=== PATIENT | male | born 1960 | race Caucasian/White ===

== ENCOUNTER 2017-12-11 18:13 | Inpatient (IN) | payer SELFPAY ==
[2017-12-11 18:48] LABS: ABSOLUTE EOSINOPHILS # (AUTO) 0.1 10^3/uL (0.0-0.6); ABSOLUTE LYMPHOCYTES (AUTO) 1.3 10^3/uL (0.5-4.7); ABSOLUTE NEUT (AUTO) 11.4 10^3/uL (1.7-8.2); BASOPHILS % (AUTO) 0.3 % (0-2); EOSINOPHILS % (AUTO) 0.5 % (0-6); HEMATOCRIT 46.2 % (37.9-51.0); HEMOGLOBIN 15.1 g/dL (13.5-17.0); LYMPHOCYTES % (AUTO) 9.3 % (13-45); MEAN CORPUSCULAR HEMOGLOBIN 25.7 pg (27.0-33.4); MEAN CORPUSCULAR HGB CONC 32.6 g/dL (32.0-36.0); MEAN CORPUSCULAR VOLUME 79 fl (80-97); MONOCYTES % (AUTO) 7.3 % (3-13); PLATELET COUNT 542 10^3/uL (150-450); RED BLOOD COUNT 5.87 10^6/uL (4.35-5.55); RED CELL DISTRIBUTION WIDTH 18.5 % (11.5-14.0); SEGMENTED NEUTROPHILS % (AUTO) 82.6 % (42-78); TOTAL CELLS COUNTED % (AUTO) 100 %; WHITE BLOOD COUNT 13.8 10^3/uL (4.0-10.5)
[2017-12-11] MEDS ORDERED: HYDROMORPHONE HCL INJ/PF 2 MG/ML AMPULE IV ONE ×2 (18:54→20:38)
[2017-12-11] MEDS ORDERED: ONDANSETRON HCL INJ/PF 4 MG/2 ML SDV IV ONE (18:54)
[2017-12-11] MEDS ORDERED: NORMAL SALINE 1000 ML 1,000 ML IV ONE ×2 (19:12)
--- NOTE | 2017-12-11 19:12 | ER Document Report ---
ED General - General Chief Complaint: Breathing Difficulty Stated Complaint: SHORTNESS OF BREATH Time Seen by Provider: 12/11/17 18:41 TRAVEL OUTSIDE OF THE [place] IN LAST 30 DAYS: No - HPI Patient complains to provider of: Shortness of breath chest wall pain Notes: Patient coming in for evaluation of shortness of breath and chest wall pain patient states he has a history of esophageal cancer is diagnosed in 2016 however has not undergone any chemotherapy or radiation. Patient recently moved to the [facility] from [place]. Patient does not have any primary care physician. Patient states that his chest has been hurting for quite some time however today he became very short of breath and concern came to the hospital for further evaluation. Patient denies any fevers chills nausea vomiting diarrhea denies any cough. Patient upon interested examination is very cachectic looking patient states he has been trying to gain weight because of possible placement of a feeding tube. Patient does state he is a DO NOT RESUSCITATE. - Related Data Allergies/Adverse Reactions: No Known Allergies Allergy (Verified 12/11/17 18:14) Past Medical History - Social History Smoking Status: Unknown if Ever Smoked Drug Abuse: Marijuana Family History: Reviewed & Not Pertinent Patient has suicidal ideation: No Patient has homicidal ideation: No Renal/ Medical History: Denies: Hx Peritoneal Dialysis Review of Systems - Review of Systems Constitutional: No symptoms reported EENT: No symptoms reported Cardiovascular: Chest pain Respiratory: Short of breath Gastrointestinal: No symptoms reported Genitourinary: No symptoms reported Male Genitourinary: No symptoms reported Musculoskeletal: No symptoms reported Skin: No symptoms reported Hematologic/Lymphatic: No symptoms reported Neurological/Psychological: No symptoms reported -: Yes All other systems reviewed and negative Physical Exam - Vital signs Vitals: Temp Pulse Resp BP Pulse Ox 97.5 F 76 18 116/88 H 96 12/11/17 18:14 12/11/17 18:14 12/11/17 18:14 12/11/17 18:14 12/11/17 18:14 Interpretation: Normal - General General appearance: Other - Cachectic - HEENT Head: Normocephalic, Atraumatic Eyes: Normal Pupils: PERRL - Respiratory Respiratory status: No respiratory distress Chest status: Tender - Palpation of the anterior chest wall does reproduce the patient's pain Breath sounds: Normal Chest palpation: Normal - Cardiovascular Rhythm: Regular Heart sounds: Normal auscultation Murmur: No - Abdominal Inspection: Normal Distension: No distension Bowel sounds: Normal Tenderness: Nontender Organomegaly: No organomegaly - Back Back: Normal, Nontender - Extremities General upper extremity: Normal inspection, Nontender, Normal color, Normal ROM , Normal temperature General lower extremity: Normal inspection, Nontender, Normal color, Normal ROM , Normal temperature, Normal weight bearing. No: Ronald's sign - Neurological Neuro grossly intact: Yes Cognition: Normal Orientation: AAOx4 Raven Coma Scale Eye Opening: Spontaneous Raven Coma Scale Verbal: Oriented Raven Coma Scale Motor: Obeys Commands Kila Coma Scale Total: 15 Speech: Normal Motor strength normal: LUE, RUE, LLE, RLE Sensory: Normal - Psychological Associated symptoms: Normal affect, Normal mood - Skin Skin Temperature: Warm Skin Moisture: Dry Skin Color: Normal Course - Re-evaluation Re-evalutation: 12/11/17 18:53 Patient came in for shortness of breath chest pain with history of esophageal cancer that has not received any chemotherapy or radiation for. Patient was diagnosed in August 2015. Patient has expressed that he wishes to be a DNR patient just recently moved back to the area does not have primary care or any care established here. 12/12/17 03:43 Laboratory studies and CTA of the chest not revealing significant pathology patient's pain relieved with Dilaudid. Patient has inquired about possible hospice however at this time do feel the best course of action will be to observe patient overnight for further evaluation to establish him case management and establishing care here in the local area. Patient agrees this plan hospitalist agrees this plan to as well - Vital Signs Vital signs: Temp Pulse Resp BP Pulse Ox 97.5 F 53 L 17 137/95 H 100 12/12/17 02:27 12/12/17 02:27 12/12/17 02:27 12/12/17 02:27 12/12/17 02:27 - Laboratory Result Diagrams: 12/11/17 18:36 12/11/17 18:58 Laboratory results interpreted by me: 12/11/17 12/11/17 12/11/17 18:36 18:58 19:13 WBC 13.8 H RBC 5.87 H MCV 79 L MCH 25.7 L RDW 18.5 H Plt Count 542 H Seg Neutrophils % 82.6 H Lymphocytes % 9.3 L Absolute Neutrophils 11.4 H Sodium 135.3 L Chloride 93 L BUN 55 H Glucose 117 H Calcium 11.3 H ALT 18 L Creatine Kinase < 20 L NT-Pro-B Natriuret Pep 1590 H Discharge - Discharge Clinical Impression: History of esophageal cancer, Chest wall pain, Shortness of breath, DNR (do not resuscitate) Condition: Good Disposition: ADMITTED INPATIENT Admitting Provider: [facility] Unit Admitted: Medical Floor
[2017-12-11 19:38] LABS: ALANINE AMINOTRANSFERASE 18 U/L (21-72); ALBUMIN 4.1 g/dL (3.5-5.0); ALKALINE PHOSPHATASE 75 U/L (38-126); ANION GAP 13 (5-19); ASPARTATE AMINO TRANSFERASE 21 U/L (17-59); BILIRUBIN,DIRECT 0.3 mg/dL (0.0-0.4); BILIRUBIN,TOTAL 0.6 mg/dL (0.2-1.3); BLOOD UREA NITROGEN 55 mg/dL (7-20); CALCIUM 11.3 mg/dL (8.4-10.2); CARBON DIOXIDE 29 mmol/L (22-30); CHLORIDE 93 mmol/L (98-107); GLUCOSE 117 mg/dL (75-110); LIPASE 78.5 U/L (23-300); SODIUM 135.3 mmol/L (137-145); TOTAL PROTEIN 7.4 g/dL (6.3-8.2)
[2017-12-11 19:41] LABS: CREATINE KINASE < 20 U/L (55-170)
[2017-12-11 19:47] LABS: CREATINE KINASE MB 2.13 ng/mL (<4.55)
[2017-12-11 19:49] LABS: TROPONIN I 0.049 ng/mL
--- NOTE | 2017-12-11 19:49 | RADIOLOGY REPORT (SQ) ---
EXAM DESCRIPTION: CHEST SINGLE VIEW COMPLETED DATE/TIME: 12/11/2017 7:10 pm REASON FOR STUDY: SOB COMPARISON: None. EXAM PARAMETERS: NUMBER OF VIEWS: One view. TECHNIQUE: Single frontal radiographic view of the chest acquired. RADIATION DOSE: NA LIMITATIONS: None. FINDINGS: LUNGS AND PLEURA: No opacities, masses or pneumothorax. No pleural effusion. MEDIASTINUM AND HILAR STRUCTURES: No masses. Contour normal. HEART AND VASCULAR STRUCTURES: Heart normal in size. Normal vasculature. BONES: No acute findings. HARDWARE: None in the chest. OTHER: No other significant finding. IMPRESSION: NO ACUTE RADIOGRAPHIC FINDING IN THE CHEST. TECHNICAL DOCUMENTATION: JOB ID: [id number] [employer]- All Rights Reserved Reading location - IP/workstation name: [email or web address]
--- NOTE | 2017-12-11 22:00 | RADIOLOGY REPORT (SQ) ---
EXAM DESCRIPTION: CTA CHEST COMPLETED DATE/TIME: 12/11/2017 9:42 pm REASON FOR STUDY: eval sob hx ca esophageal COMPARISON: None. TECHNIQUE: CT scan of the chest performed using helical scanning technique with dynamic intravenous contrast injection. Images reviewed with lung, soft tissue and bone windows. Reconstructed coronal and sagittal MPR images reviewed. Additional 3 dimensional post-processing performed to develop Maximal Intensity Projection images (DE P). All images stored on PACS. All CT scanners at this facility use dose modulation, iterative reconstruction, and/or weight based d osing when appropriate to reduce radiation dose to as low as reasonably achievable (ALARA). [facility]: Dose Right [facility]: CareDose [facility]: Dose Right [facility]: Teradose 4D [facility]: [employer] CONTRAST TYPE AND DOSE: contrast/concentration: Isovue 370.00 mg/ml; Total Contrast Delivered: 60.0 ml; Total Saline Delivered: 67.0 ml Contrast bolus optimized for the pulmonary arteries. Not diagnostic for the aorta. RENAL FUNCTION: BUN 55 creatinine 1.06 RADIATION DOSE: CT Rad equipment meets quality standard of care and radiation dose reduction techniq ues were employed. CTDIvol: 13.2 - 14.3 mGy. DLP: 546 mGy-cm. . LIMITATIONS: None. FINDINGS: LUNGS AND PLEURA: Mild centrilobular emphysematous changes are present. There is no infil trate, effusion, or mass. AORTA AND GREAT VESSELS: No aneurysm. Contrast bolus not optimized for the aorta. HEART: No pericardial effusion. No significant coronary artery calcifications. PULMONARY ARTERIES: No emboli visualized in the main pulmonary arteries or the segmental branches. HILAR AND MEDIASTINAL STRUCTURES: The esophagus is filled with fluid and is dilated down into the low er mediastinum where there is marked thickening of the esophagus. The esophageal lumen at this point is quite narrow. HARDWARE: None in the chest. UPPER ABDOMEN: No significant findings. Limited exam. THYROID AND OTHER SOFT TISSUES: No masses. No adenopathy. BONES: No acute or significant finding. 3D MIPS: Confirm above findings. OTHER: No other significant finding. IMPRESSION: 1. There is no evidence of pulmonary emboli. 2. Mild centrilobular pulmonary emphysema. 3. Large lower esophageal mass. COMMENT: Quality ID # [id number]: Final reports with documentation of one or more dose reduction techniques (e.g., Automated exposure control, adjustment of the mA and/or kV according to patient size, use of iterative reconstruction technique) TECHNICAL DOCUMENTATION: JOB ID: [id number] [employer]- All Rights Reserved Reading location - IP/workstation name: [email or web address]
--- NOTE | 2017-12-11 23:10 | EKG REPORT ---
SEVERITY:- ABNORMAL ECG - SINUS RHYTHM INFERIOR INFARCT, AGE INDETERMINATE : Confirmed by: Carlitos Pelaez 11-Dec-2017 23:09:56
--- NOTE | 2017-12-11 23:10 | EKG REPORT ---
SEVERITY:- OTHERWISE NORMAL ECG - SINUS RHYTHM LOW VOLTAGE IN FRONTAL LEADS MINIMAL ST ELEVATION, INFERIOR LEADS : Confirmed by: Carlitos Pelaez 11-Dec-2017 23:09:19
[2017-12-11] MEDS ORDERED: FENTANYL 12 MCG/HR PATCH.TD72 TD ONE (23:24)
[2017-12-11] MEDS ORDERED: PROMETHAZINE HCL INJ 25 MG/1 ML VIAL IV PRN (23:24)
[2017-12-11] MEDS ORDERED: PROMETHAZINE HCL INJ 25 MG/1 ML VIAL ONE (23:38)
[2017-12-12] MEDS ORDERED: HYDROMORPHONE HCL INJ/PF 2 MG/ML AMPULE ONE (00:29)
[2017-12-12] MEDS: HYDROMORPHONE HCL INJ/PF 2 MG/ML AMPULE IV PRN ×8 (00:31→21:20)
[2017-12-12] MEDS: NORMAL SALINE 1000 ML 1,000 ML IV PRN ×3 (04:21→10:11)
--- NOTE | 2017-12-12 06:08 | PDOC H&P ---
History of Present Illness Admission Date/PCP: 12/12/17 00:00 Patient complains of: Shortness of breath and chest pain History of Present Illness: CHEN GOEL is a 57 year old male with a past medical history of terminal esophageal cancer with severe esophageal stenosis, severe cachexia, anorexia and tobacco dependence. Patient presents with difficulty with swallowing, belching and chest pain. He requests conservative management only formally declining chemotherapy, radiation, requesting DNR and hospice consult. In the emergency room he has a CTA which was negative for PE but shows a large distal esophageal mass with partial esophageal obstruction. Patient [place] the [place]. Past Medical History Malignancy Medical History: Reports: Other - Esophageal cancer Psychiatric Medical History: Reports: Tobacco Dependency Social History Information Source: Patient Lives with: Spouse/Significant other Smoking Status: Unknown if Ever Smoked Cigarettes Packs Per Day: 0.2 Number of Years Smokin Frequency of Alcohol Use: Rare Drugs: Marijuana Hx Prescription Drug Abuse: No - Advance Directive Resuscitation Status: Do Not Resuscitate Family History Family History: COPD Parental Family History Reviewed: Yes Children Family History Reviewed: Yes Sibling(s) Family History Reviewed.: Yes Medication/Allergy Allergies/Adverse Reactions: No Known Allergies Allergy (Verified 12/11/17 18:14) Review of Systems Constitutional: PRESENT: as per HPI, anorexia, fatigue, weight loss. ABSENT: fever(s) Eyes: ABSENT: visual disturbances Ears: ABSENT: hearing changes Cardiovascular: ABSENT: chest pain, dyspnea on exertion, edema, orthropnea, palpitations Respiratory: PRESENT: as per HPI, cough, dyspnea. ABSENT: hemoptysis, sputum Gastrointestinal: PRESENT: as per HPI, bloating, dysphagia, heartburn, nausea Genitourinary: ABSENT: dysuria, hematuria Musculoskeletal: ABSENT: joint swelling Integumentary: ABSENT: rash, wounds Neurological: ABSENT: abnormal gait, abnormal speech, confusion, dizziness, focal weakness, syncope Psychiatric: ABSENT: anxiety, depression, homidical ideation, suicidal ideation Endocrine: ABSENT: cold intolerance, heat intolerance, polydipsia, polyuria Hematologic/Lymphatic: ABSENT: easy bleeding, easy bruising Physical Exam Vital Signs: Temp Pulse Resp BP Pulse Ox 97.5 F 53 L 17 137/95 H 100 12/12/17 02:27 12/12/17 02:27 12/12/17 02:27 12/12/17 02:27 12/12/17 02:27 Intake & Output 12/10/17 12/11/17 12/12/17 11:59 11:59 11:59 Weight 51.9 kg General appearance: PRESENT: cooperative, disheveled, severe distress, thin, other - Chronically ill-appearing with temporal wasting and cachexia Head exam: PRESENT: atraumatic, normocephalic Eye exam: PRESENT: conjunctiva pink, EOMI, PERRLA. ABSENT: scleral icterus Ear exam: PRESENT: normal external ear exam Mouth exam: PRESENT: moist, tongue midline Neck exam: ABSENT: carotid bruit, JVD, lymphadenopathy, thyromegaly Respiratory exam: PRESENT: accessory muscle use, chest wall tenderness, crackles , prolonged expiratory phas, retraction Cardiovascular exam: PRESENT: RRR. ABSENT: diastolic murmur, rubs, systolic murmur Pulses: PRESENT: normal dorsalis pedis pul Vascular exam: PRESENT: normal capillary refill GI/Abdominal exam: PRESENT: diminished bowel sounds, hypoactive bowel sounds, tenderness. ABSENT: ascites, distended Rectal exam: PRESENT: deferred Extremities exam: PRESENT: full ROM. ABSENT: calf tenderness, clubbing, pedal edema Neurological exam: PRESENT: alert, awake, oriented to person, oriented to place , oriented to time, oriented to situation, CN II-XII grossly intact. ABSENT: motor sensory deficit Psychiatric exam: PRESENT: appropriate affect, normal mood. ABSENT: homicidal ideation, suicidal ideation Skin exam: PRESENT: dry, intact, warm. ABSENT: cyanosis, rash Results Impressions: Chest X-Ray 12/11/17 18:24 IMPRESSION: NO ACUTE RADIOGRAPHIC FINDING IN THE CHEST. Chest/Abdomen CTA 12/11/17 20:24 IMPRESSION: 1. There is no evidence of pulmonary emboli. 2. Mild centrilobular pulmonary emphysema. 3. Large lower esophageal mass. Assessment & Plan - Diagnosis (1) Esophageal cancer Is this a current diagnosis for this admission?: Yes Plan: Patient requesting hospice, fentanyl patch, Dilaudid as needed hospice consulted , (2) Intractable pain Is this a current diagnosis for this admission?: Yes Plan: Fentanyl patch, Dilaudid as needed (3) Dysphasia Is this a current diagnosis for this admission?: Yes Plan: Symptomatic management. IV fluid resuscitation requested - Time Time Spent: 30 to 50 Minutes - Inpatient Certification Medical Necessity: Need Close Monitoring Due to Risk of Patient Decompensation
[2017-12-12 06:58] LABS: ANION GAP 7 (5-19); BLOOD UREA NITROGEN 46 mg/dL (7-20); CALCIUM 10.2 mg/dL (8.4-10.2); CARBON DIOXIDE 27 mmol/L (22-30); CHLORIDE 103 mmol/L (98-107); GLUCOSE 84 mg/dL (75-110); POTASSIUM 4.8 mmol/L (3.6-5.0); SODIUM 136.6 mmol/L (137-145)
[2017-12-12] MEDS: IPRATROPIUM/ALBUTEROL 0.5-2.5 MG/3 ML AMPUL NEB PRN ×2 (08:56→19:25)
[2017-12-12 12:49] LABS: APPEARANCE,URINE CLEAR; BILIRUBIN,URINE NEGATIVE (NEGATIVE); COLOR,URINE YELLOW; GLUCOSE, URINE NEGATIVE (NEGATIVE); KETONES,URINE 20 mg/dL (NEGATIVE); LEUKOCYTE ESTERASE,URINE NEGATIVE (NEGATIVE); NITRITE,URINE NEGATIVE (NEGATIVE); PROTEIN,URINE NEGATIVE (NEGATIVE); URINE SPECIFIC GRAVITY 1.046
[2017-12-12] MEDS ORDERED: GLUCAGON,HUMAN RECOMB 1 MG INJ SUBCUT PRN (13:36)
[2017-12-12] MEDS ORDERED: DEXTROSE 50%-WATER 25 GM/50 ML DISP.SYRIN IV PRN ×2 (13:36)
[2017-12-12] MEDS ORDERED: DEXTROSE 40% GEL 15 GM TUBE PO PRN ×2 (13:36)
--- NOTE | 2017-12-12 13:47 | PDOC PROGRESS REPORT ---
Subjective Progress Note for:: 12/12/17 Subjective:: Patient has dysphagia even for water and does not tolerate ice chips Reason For Visit: TERMINAL CA INTRACTABLE PAIN DYSPHAGIA Physical Exam Vital Signs: Temp Pulse Resp BP Pulse Ox 97.5 F 79 17 111/62 97 12/12/17 10:58 12/12/17 10:58 12/12/17 10:58 12/12/17 10:58 12/12/17 12:00 Intake & Output 12/11/17 12/12/17 12/13/17 00:59 00:59 00:59 Intake Total 3056 Balance 3056 Weight 51.9 kg General appearance: PRESENT: mild distress, thin Head exam: PRESENT: atraumatic, normocephalic Eye exam: PRESENT: conjunctiva pale, EOMI, PERRLA Neck exam: ABSENT: carotid bruit, JVD, lymphadenopathy, thyromegaly Respiratory exam: PRESENT: clear to auscultation dionte. ABSENT: rales, rhonchi, wheezes Cardiovascular exam: PRESENT: RRR. ABSENT: diastolic murmur, rubs, systolic murmur GI/Abdominal exam: PRESENT: normal bowel sounds, soft. ABSENT: distended, guarding, mass, organolmegaly, rebound, tenderness Extremities exam: PRESENT: full ROM. ABSENT: calf tenderness, clubbing, pedal edema Neurological exam: PRESENT: alert, awake, CN II-XII grossly intact Psychiatric exam: PRESENT: appropriate affect, normal mood Skin exam: PRESENT: dry, intact, warm. ABSENT: cyanosis, rash Results Laboratory Results: 12/12/17 06:31 12/12/17 12/12/17 06:31 12:14 Sodium 136.6 L Potassium 4.8 Chloride 103 Carbon Dioxide 27 Anion Gap 7 BUN 46 H Creatinine 0.83 Est GFR ( Amer) > 60 Est GFR (Non-Af Amer) > 60 Glucose 84 Calcium 10.2 Urine Color YELLOW Urine Appearance CLEAR Urine pH 5.0 Ur Specific [place] 1.046 Urine Protein NEGATIVE Urine Glucose (UA) NEGATIVE Urine Ketones 20 H Urine Blood NEGATIVE Urine Nitrite NEGATIVE Ur Leukocyte Esterase NEGATIVE Urine WBC (Auto) 0 Urine RBC (Auto) 1 Impressions: Chest X-Ray 12/11/17 18:24 IMPRESSION: NO ACUTE RADIOGRAPHIC FINDING IN THE CHEST. Chest/Abdomen CTA 12/11/17 20:24 IMPRESSION: 1. There is no evidence of pulmonary emboli. 2. Mild centrilobular pulmonary emphysema. 3. Large lower esophageal mass. Assessment & Plan - Time Time Spent with patient: 1 esophageal cancer There is a large mass distal esophagus described on CTA of the chest no pulmonary metastases we had a long discussion with the patient who agrees to initiate a workup and be evaluated for palliative therapy CT abdomen and pelvis with IV contrast will be ordered we discussed the case with Dr. Taylor and Dr. Goldstein who will consult Patient will be n.p.o. after midnight Endoscopy to be performed tomorrow morning 2 dysphasia Keep patient n.p.o. for the time being he is at risk for aspiration Ice chips as needed for comfort patient usually spits to water N.p.o. after midnight It is too early to discuss the gastrostomy tube as modalities of treatment have to be discussed first 3 intractable pain Treat symptomatically; opiates have been initiated 4 we will offer nicotine patch Time Spent with patient: 25-34 minutes
--- NOTE | 2017-12-12 13:57 | PDOC CONSULTATION ---
Consultation Consult Date: 12/12/17 Attending physician:: MARI BENEDICT Consult reason:: esophageal obstruction due to esophageal mass History of Present Illness Admission Date/PCP: 12/12/17 00:00 History of Present Illness: CHEN GOEL is a 57 year old male patient with known lower esophageal mass and has terminal cancer patient is unable to tolerated liquids at this point patient is requesting hospice but consult obtained to see if we could possibly do dilation or possibly be a candidate for esophageal stenting patient on chronic pain control I have spoken to Dr Hurtado patient had CT scan of the chest that confirmed the finding however do not know cell type, ? adenoma ? as a result of Schwartz Past Medical History Malignancy Medical History: Reports: Other - Esophageal cancer Psychiatric Medical History: Reports: Tobacco Dependency Social History Lives with: Spouse/Significant other Smoking Status: Unknown if Ever Smoked Cigarettes Packs Per Day: 0.2 Number of Years Smokin Frequency of Alcohol Use: Rare Drugs: Marijuana Hx Prescription Drug Abuse: No - Advance Directive Resuscitation Status: Do Not Resuscitate Family History Family History: COPD Parental Family History Reviewed: Yes Children Family History Reviewed: Unknown Sibling(s) Family History Reviewed.: Unknown Medication/Allergy Home Medications: No Home Medications 12/12/17 Allergies/Adverse Reactions: No Known Allergies Allergy (Verified 12/11/17 18:14) Review of Systems Constitutional: ABSENT: fever(s), headache(s), night sweats, weakness Eyes: ABSENT: visual disturbances Ears: ABSENT: hearing changes Nose, Mouth, and Throat: ABSENT: mouth pain Cardiovascular: ABSENT: edema, orthropnea Respiratory: ABSENT: dyspnea, hemoptysis Gastrointestinal: PRESENT: dysphagia. ABSENT: melena Genitourinary: ABSENT: dysuria, hematuria Musculoskeletal: ABSENT: deformity, joint swelling Integumentary: ABSENT: lesions, pruritus Neurological: PRESENT: weakness. ABSENT: syncope, tingling, tremor(s), vertigo Endocrine: ABSENT: polydipsia, polyphagia, polyuria Hematologic/Lymphatic: PRESENT: easy bruising. ABSENT: lymphadenopathy Physical Exam Vital Signs: Temp Pulse Resp BP Pulse Ox 97.5 F 79 17 111/62 97 12/12/17 10:58 12/12/17 10:58 12/12/17 10:58 12/12/17 10:58 12/12/17 12:00 Intake & Output 12/11/17 12/12/17 12/13/17 06:59 06:59 06:59 Intake Total 1056 1999 Balance 1056 1999 Weight 51.9 kg General appearance: PRESENT: cooperative, thin Head exam: PRESENT: atraumatic, normocephalic Eye exam: PRESENT: EOMI, PERRLA. ABSENT: nystagmus, periorbital swelling, scleral icterus Mouth exam: PRESENT: moist, neck supple Throat exam: ABSENT: tonsillar exudate, tonsillogmegaly Neck exam: ABSENT: meningismus, tenderness, thyromegaly Respiratory exam: PRESENT: symmetrical, unlabored. ABSENT: tachypnea, wheezes Cardiovascular exam: PRESENT: RRR, +S1, +S2 GI/Abdominal exam: PRESENT: soft. ABSENT: rebound, rigid, tenderness Extremities exam: ABSENT: joint swelling Musculoskeletal exam: PRESENT: full ROM Neurological exam: PRESENT: oriented to time, oriented to situation, reflexes normal, CN II-XII grossly intact Focused psych exam: ABSENT: restlessness Skin exam: PRESENT: normal color. ABSENT: mottled, pallor, urticaria, vesicles Results Laboratory Results: 12/12/17 06:31 12/12/17 12/12/17 06:31 12:14 Sodium 136.6 L Potassium 4.8 Chloride 103 Carbon Dioxide 27 Anion Gap 7 BUN 46 H Creatinine 0.83 Est GFR ( Amer) > 60 Est GFR (Non-Af Amer) > 60 Glucose 84 Calcium 10.2 Urine Color YELLOW Urine Appearance CLEAR Urine pH 5.0 Ur Specific [place] 1.046 Urine Protein NEGATIVE Urine Glucose (UA) NEGATIVE Urine Ketones 20 H Urine Blood NEGATIVE Urine Nitrite NEGATIVE Ur Leukocyte Esterase NEGATIVE Urine WBC (Auto) 0 Urine RBC (Auto) 1 Impressions: Chest X-Ray 12/11/17 18:24 IMPRESSION: NO ACUTE RADIOGRAPHIC FINDING IN THE CHEST. Chest/Abdomen CTA 12/11/17 20:24 IMPRESSION: 1. There is no evidence of pulmonary emboli. 2. Mild centrilobular pulmonary emphysema. 3. Large lower esophageal mass. Assessment & Plan - Diagnosis (1) Esophageal cancer Is this a current diagnosis for this admission?: Yes Plan: Known history of esophageal cancer, but cannot able to tolerate oral intake request is for EGD but except for stent placement , there may be limited ability to help him dilation is temporary at best will speak to Dr Hurtado Risks, benefits and alternatives are discussed with the patient further recommendations to follow the only other issue here is whether is obstructive. - Time Time Spent: 50 to 70 Minutes
--- NOTE | 2017-12-12 14:41 | RADIOLOGY REPORT (SQ) ---
EXAM DESCRIPTION: CT ABD/PELVIS WITH IV ONLY COMPLETED DATE/TIME: 12/12/2017 2:14 pm REASON FOR STUDY: ca esophagus dysphagia COMPARISON: CT angio chest 12/11/2017 TECHNIQUE: CT scan of the abdomen and pelvis performed using helical scanning technique with dynamic intravenous contrast injection. No oral contrast. Images reviewed with lung, soft tissue, and bone windows. Reconstructed coronal and sagittal MPR images reviewed. Delayed images for evaluation of the urinary system also acquired. All images stored on PACS. All CT scanners at this facility use dose modulation, iterative reconstruction, and/or weight based d osing when appropriate to reduce radiation dose to as low as reasonably achievable (ALARA). [facility]: Dose Right [facility]: CareDose [facility]: Dose Right [facility]: Teradose 4D [facility]: DwellAware CONTRAST TYPE AND DOSE: contrast/concentration: Isovue 370.00 mg/ml; Total Contrast Delivered: 56.0 ml; Total Saline Delivered: 65.0 ml RENAL FUNCTION: Creatinine 0.83 RADIATION DOSE: CT Rad equipment meets quality standard of care and radiation dose reduction techniq ues were employed. CTDIvol: 5.7 - 6.6 mGy. DLP: 661 mGy-cm.. LIMITATIONS: None. FINDINGS: LOWER CHEST: There is a distal esophageal tumor involving the distal tendon 15 cm of esoph linda. Tumor extends into the gastric cardia, best shown on coronal reconstruction images 31-37. The re are enlarged posterior mediastinal lymph nodes adjacent to the distal esophageal tumor, with a 2.8 x 2.5 cm lymph node on axial images 3-6. LIVER: Normal size. Multiple liver masses are present worrisome for metastatic disease, largest in t he right lobe liver 2.7 cm diameter, largest left lobe liver 2.9 cm in diameter. SPLEEN: Normal size. No focal lesions. PANCREAS: No masses. No significant calcifications. No adjacent inflammation or peripancreatic fluid collections. Pancreatic duct not dilated. GALLBLADDER: No identified stones by CT criteria. No inflammatory changes to suggest cholecystitis. ADRENAL GLANDS: No significant masses or asymmetry. RIGHT KIDNEY AND URETER: No solid masses. No significant calcifications. No hydronephrosis or hyd roureter. LEFT KIDNEY AND URETER: No solid masses. No significant calcifications. No hydronephrosis or hydr oureter. AORTA AND VESSELS: Infrarenal abdominal aorta 3.3 cm in diameter. No dissection. Renal arteries, SMA, celiac without stenosis. RETROPERITONEUM: No retroperitoneal adenopathy, hemorrhage or masses. BOWEL AND PERITONEAL CAVITY: No masses or inflammatory changes. No free fluid or peritoneal masses. APPENDIX: Normal. PELVIS: No mass. No free fluid. Normal bladder. ABDOMINAL WALL: No masses. No hernias. BONES: No significant or acute findings. OTHER: No other significant finding. IMPRESSION: Distal esophageal neoplasm extending into the gastric cardia. Liver metastatic lesions. TECHNICAL DOCUMENTATION: JOB ID: [id number] Quality ID # [id number]: Final reports with documentation of one or more dose reduction techniques (e.g., Au tomated exposure control, adjustment of the mA and/or kV according to patient size, use of iterative reconstruction technique) 2010 [employer]- All Rights Reserved Reading location - IP/workstation name: [email or web address]
[2017-12-12] MEDS: PROMETHAZINE HCL INJ 25 MG/1 ML VIAL IV PRN (18:32)
[2017-12-13] MEDS: HYDROMORPHONE HCL INJ/PF 2 MG/ML AMPULE IV PRN ×7 (00:40→21:31)
[2017-12-13] MEDS: PROMETHAZINE HCL INJ 25 MG/1 ML VIAL IV PRN ×4 (00:41→22:48)
[2017-12-13] MEDS ORDERED: ONDANSETRON HCL INJ/PF 4 MG/2 ML SDV ONE (09:47)
[2017-12-13] MEDS ORDERED: PROPOFOL INJ 200 MG/20 ML VIAL IV ONE (09:47)
[2017-12-13] MEDS ORDERED: MIDAZOLAM 2 MG/2 ML INJ ONE (09:47)
--- NOTE | 2017-12-13 10:26 | PDOC CONSULTATION ---
Consultation Consult Date: 12/13/17 Consult reason:: Hematology/Oncology consultation was requested for patient with clinical metastatic esophageal cancer. History of Present Illness Admission Date/PCP: 12/12/17 00:00 History of Present Illness: CHEN GOEL is a 57 year old male who was first diagnosed with Esophageal cancer in Aug, 2016. At the time, he was told that in order to undergo any aggressive therapy, he would need to have PEG tube placed and would need to improve his performance status. Chemo and radiation was recommended, but he was not felt to be a surgical candidate initially. Patient declined all treatment and has NOT followed regularly with an oncologist. He presented to the ED this week with increased chest pain, dyspnea, and difficulty eating. Today, he states that he is very upset at everyone, including the initial physician back in 2016 for telling him his diagnosis so abruptly. He states that he is scheduled for a procedure today, but was not told exactly what time this would be performed. He also has not been allowed to eat or drink, and his IV fluids were stopped. His pain has been controlled, but he still has some nausea. He indicated that no one has discussed with him what type of procedure he is having. However, his joins us midway through our conversation and verifies that they discussed with him reason for the EGD, the possibility of an esophageal stent placement for palliation of symptoms only, as asked patient if he would like a PEG tube placed, but patient has declined. They spoke with Hospice/Palliative Care yesterday and are very open to their services. Past Medical History Malignancy Medical History: Reports: Other - Esophageal cancer Psychiatric Medical History: Reports: Tobacco Dependency Social History Information Source: Patient Lives with: Spouse/Significant other Smoking Status: Unknown if Ever Smoked Cigarettes Packs Per Day: 0.2 Number of Years Smokin Frequency of Alcohol Use: Rare Drugs: Marijuana Hx Prescription Drug Abuse: No - Advance Directive Resuscitation Status: Do Not Resuscitate Family History Family History: COPD Parental Family History Reviewed: Yes - Father still living. Children Family History Reviewed: Yes Sibling(s) Family History Reviewed.: No Medication/Allergy Home Medications: No Home Medications 12/12/17 Allergies/Adverse Reactions: No Known Allergies Allergy (Verified 12/11/17 18:14) Review of Systems Constitutional: ABSENT: fever(s), headache(s) Eyes: ABSENT: visual disturbances Ears: ABSENT: hearing changes Nose, Mouth, and Throat: PRESENT: sore throat, other - Dry mouth Cardiovascular: PRESENT: chest pain, dyspnea on exertion Respiratory: PRESENT: dyspnea Gastrointestinal: PRESENT: dysphagia, nausea Genitourinary: PRESENT: other - decrerased urine output due to dehydration Integumentary: ABSENT: lesions, rash Neurological: PRESENT: weakness. ABSENT: numbness Psychiatric: ABSENT: anxiety, depression Physical Exam Vital Signs: Temp Pulse Resp BP Pulse Ox 97.6 F 80 14 133/83 H 100 12/12/17 23:33 12/12/17 23:33 12/12/17 23:33 12/12/17 23:33 12/12/17 23:33 Intake & Output 12/12/17 12/13/17 12/14/17 06:59 06:59 06:59 Intake Total 1056 2120 Output Total 500 Balance 1056 1620 Weight 51.9 kg 57 kg General appearance: PRESENT: no acute distress, thin Exam: Cachectic 57 year old male. Sitting up in bed. is at bedside. Head exam: PRESENT: atraumatic, normocephalic Eye exam: PRESENT: PERRLA Mouth exam: PRESENT: dry mucosa Neck exam: ABSENT: lymphadenopathy, thyromegaly Respiratory exam: PRESENT: clear to auscultation dionte, unlabored Cardiovascular exam: PRESENT: RRR Extremities exam: ABSENT: pedal edema Musculoskeletal exam: PRESENT: normal inspection Neurological exam: PRESENT: alert, awake, oriented to person, oriented to place , oriented to time, oriented to situation Psychiatric exam: PRESENT: agitated Focused psych exam: ABSENT: pressured speech, psychomotor agitation Skin exam: PRESENT: normal color Results Laboratory Results: 12/12/17 06:31 12/12/17 12:14 Urine Color YELLOW Urine Appearance CLEAR Urine pH 5.0 Ur Specific Crane 1.046 Urine Protein NEGATIVE Urine Glucose (UA) NEGATIVE Urine Ketones 20 H Urine Blood NEGATIVE Urine Nitrite NEGATIVE Ur Leukocyte Esterase NEGATIVE Urine WBC (Auto) 0 Urine RBC (Auto) 1 Impressions: Chest X-Ray 12/11/17 18:24 IMPRESSION: NO ACUTE RADIOGRAPHIC FINDING IN THE CHEST. Chest/Abdomen CTA 12/11/17 20:24 IMPRESSION: 1. There is no evidence of pulmonary emboli. 2. Mild centrilobular pulmonary emphysema. 3. Large lower esophageal mass. Abdomen/Pelvis CT 12/12/17 11:42 IMPRESSION: Distal esophageal neoplasm extending into the gastric cardia. Liver metastatic lesions. Status: Image reviewed by me Assessment & Plan - Diagnosis (1) Esophageal cancer Is this a current diagnosis for this admission?: Yes Plan: Clinically, this is a stage IV with Liver mets. I have explained to the patient that I agree this is incurable and main goal should be palliation. He states that he would like as much information as possible and would like for all the physicians to explain everything to him, before they do anything. I have explained that the procedure today is only for palliation of symptoms and in no way will this treat the cancer. We discussed feeding tube and IV fluids. Although he does not wish to have PEG tube, or artificial life-sustaining nutrition given, he very much wants to continue MIVF while NPO in the hospital. He believe this will improve his well being and help him cope with his illness better on discharge. I am in agreement with Hospice services on discharge. I will discuss this with him more in the future. (2) Intractable pain Is this a current diagnosis for this admission?: Yes Plan: He indicates that the pain is controlled with current medications, however, he is still quite agitated. I would increase the duragesic patch and transition him from IV dilaudid to Liquid concentrate Morphine or dilaudid for home use. Also consider Ativan SL to help his nausea and agitation. - Time Time Spent: Greater than 70 Minutes Anticipated discharge: Hospice Within: within 24 hours - Plan Summary Plan Summary: I spent a great deal of time with patient and his . His care was also discussed with Dr. Hurtado. I will continue to follow him while in the hospital.
--- NOTE | 2017-12-13 11:21 | Operative Report ---
Operative Report DATE OF SURGERY: 12/13/17 Operative Report: The risks benefits and alternatives of the procedure explained to the patient in detail and informed consent is obtained that GIF Olympus video scope was inserted into the patient's mouth and hypopharynx the esophagus is identified intubated and insufflated the scope was then advanced through the esophagus and an obstructive mass in noted, not able to pass tube thru to the stomach. Biopsies are obtained. PREOPERATIVE DIAGNOSIS: Dysphagia POSTOPERATIVE DIAGNOSIS: Completely obstructed esophagus. Biopsies obtained OPERATION: EGD with biopsy SURGEON: MARI BENEDICT ANESTHESIA: LMAC TISSUE REMOVED OR ALTERED: Esophageal mass COMPLICATIONS: None. ESTIMATED BLOOD LOSS: None. INTRAOPERATIVE FINDINGS: As noted above. PROCEDURE: Patient tolerated the procedure well. No immediate postprocedure complications are noted. Patient sent back to his room in good condition. We will await pathology. As to whether this is squamous versus adenocarcinoma however the distinction may be a moot point at this juncture Not able to have stent placement Not able to have endoscopic PEG placement If patient does want a PEG will be an open surgical placement We will sign off thank you
--- NOTE | 2017-12-13 16:40 | PDOC PROGRESS REPORT ---
Subjective Progress Note for:: 12/13/17 Subjective:: Patient underwent endoscopy this morning and a very large distal esophageal mass obstructing the lumen was described Biopsy was sent to pathology CT abdomen and pelvis shows hepatic metastases Patient is quite depressed as results were discussed Reason For Visit: TERMINAL CA INTRACTABLE PAIN Physical Exam Vital Signs: Temp Pulse Resp BP Pulse Ox 97.6 F 80 14 133/83 H 100 12/13/17 12:58 12/13/17 12:58 12/13/17 12:58 12/13/17 12:58 12/13/17 12:58 Intake & Output 12/12/17 12/13/17 12/14/17 00:59 00:59 00:59 Intake Total 3176 600 Output Total 500 0 Balance 2676 600 Weight 51.9 kg 57 kg General appearance: PRESENT: thin Head exam: PRESENT: atraumatic, normocephalic Eye exam: PRESENT: conjunctiva pink, EOMI, PERRLA. ABSENT: scleral icterus Neck exam: ABSENT: carotid bruit, JVD, lymphadenopathy, thyromegaly Respiratory exam: PRESENT: clear to auscultation dionte. ABSENT: rales, rhonchi, wheezes Cardiovascular exam: PRESENT: RRR. ABSENT: diastolic murmur, rubs, systolic murmur GI/Abdominal exam: PRESENT: normal bowel sounds, soft. ABSENT: distended, guarding, mass, organolmegaly, rebound, tenderness Neurological exam: PRESENT: alert, awake, oriented to person, oriented to place , oriented to time, oriented to situation, CN II-XII grossly intact. ABSENT: motor sensory deficit Results Laboratory Results: 12/12/17 06:31 Impressions: Chest X-Ray 12/11/17 18:24 IMPRESSION: NO ACUTE RADIOGRAPHIC FINDING IN THE CHEST. Chest/Abdomen CTA 12/11/17 20:24 IMPRESSION: 1. There is no evidence of pulmonary emboli. 2. Mild centrilobular pulmonary emphysema. 3. Large lower esophageal mass. Abdomen/Pelvis CT 12/12/17 11:42 IMPRESSION: Distal esophageal neoplasm extending into the gastric cardia. Liver metastatic lesions. Assessment & Plan - Diagnosis (1) Metastatic disease Is this a current diagnosis for this admission?: Yes (2) Dysphasia Is this a current diagnosis for this admission?: Yes (3) Esophageal cancer Is this a current diagnosis for this admission?: Yes - Time Time Spent with patient: Continue to hydrate IV Discussed gastrostomy tube and feeding Patient wants to know how long he will live and if tube feedings with prolonged his life Dr. Goldstein and myself will discuss various issues tomorrow morning to help him make an informed decision regarding feedings Patient's nutritional status is too poor at this time for chemo radiation therapy Time Spent with patient: 25-34 minutes
[2017-12-13] MEDS: IPRATROPIUM/ALBUTEROL 0.5-2.5 MG/3 ML AMPUL NEB PRN (18:05)
[2017-12-13] MEDS: DEXTROSE 5%-NORMAL SALINE 1,000 ML IV PRN (18:08)
[2017-12-14] MEDS: HYDROMORPHONE HCL INJ/PF 2 MG/ML AMPULE IV PRN ×9 (02:05→23:35)
[2017-12-14] MEDS: PROMETHAZINE HCL INJ 25 MG/1 ML VIAL IV PRN ×5 (02:20→23:31)
[2017-12-14] MEDS: DEXTROSE 5%-NORMAL SALINE 1,000 ML IV PRN (11:44)
--- NOTE | 2017-12-14 12:06 | PDOC PROGRESS REPORT ---
Subjective Progress Note for:: 12/14/17 Subjective:: Patient just returned from going outside, so he is more pleasant. Dr. Hurtado and I both were in the room with the patient and his . He states that his pain is well controlled, but he is still requiring IV pain meds RTC for this. Nausea also controlled with meds. ROS: Pain in arm with bending over. Weakness. Dry mouth. Reason For Visit: TERMINAL CA INTRACTABLE PAIN Physical Exam Vital Signs: Temp Pulse Resp BP Pulse Ox 97.4 F 76 16 131/69 H 97 12/14/17 08:01 12/14/17 08:45 12/14/17 08:45 12/14/17 08:01 12/14/17 08:01 Intake & Output 12/13/17 12/14/17 12/15/17 06:59 06:59 06:59 Intake Total 2120 850 Output Total 500 300 Balance 1620 550 Weight 57 kg 57.5 kg General appearance: PRESENT: no acute distress, thin Mouth exam: PRESENT: dry mucosa Extremities exam: ABSENT: pedal edema Neurological exam: PRESENT: alert, awake Psychiatric exam: PRESENT: agitated, appropriate affect Skin exam: PRESENT: normal color Results Laboratory Results: 12/12/17 06:31 Impressions: Chest X-Ray 12/11/17 18:24 IMPRESSION: NO ACUTE RADIOGRAPHIC FINDING IN THE CHEST. Chest/Abdomen CTA 12/11/17 20:24 IMPRESSION: 1. There is no evidence of pulmonary emboli. 2. Mild centrilobular pulmonary emphysema. 3. Large lower esophageal mass. Abdomen/Pelvis CT 12/12/17 11:42 IMPRESSION: Distal esophageal neoplasm extending into the gastric cardia. Liver metastatic lesions. Assessment & Plan - Diagnosis (1) Esophageal cancer Is this a current diagnosis for this admission?: Yes Plan: This was discussed in detail with the patient and . Patient understands that it is stage IV and it is incurable. He requests comfort measures only but would like to be able to have PEG placed so that he may have some nutrition. His cancer has totally occluded his esophagus. He is unable to pass anything from his mouth to his stomach currently. He continues on NS only. Plan to have surgery place the PEG tube on Saturday. (2) Intractable pain Is this a current diagnosis for this admission?: Yes Plan: I will increase Duragesic to 50 mcg. Once PEG placed, will change all other meds, including pain meds to PEG or SL. - Plan Summary Plan Summary: I spent 35 minutes with patient and coordinating care with other physicians.
[2017-12-14] MEDS ORDERED: FENTANYL 50 MCG/HR PATCH.TD72 TD ONE (13:30)
[2017-12-14 14:06] LABS: INTERNATIONAL RATION (INR) 0.97; PARTIAL THROMBOPLASTIN TIME 28.4 SEC (23.5-35.8); PROTHROMBIN TIME 13.4 SEC (11.4-15.4)
--- NOTE | 2017-12-14 16:53 | PDOC PROGRESS REPORT ---
Subjective Progress Note for:: 12/14/17 Subjective:: patient still has significant pain no SOB no fever still on IV fluids Patient wishes to have a gastric tube placed for tube feedings He does understand that there is no palliative treatment option for his cancer and that the tube feedings may prolong his life but will not change the outcome- Reason For Visit: TERMINAL CA INTRACTABLE PAIN Physical Exam Vital Signs: Temp Pulse Resp BP Pulse Ox 97.6 F 90 20 126/76 H 90 L 12/14/17 12:00 12/14/17 12:00 12/14/17 12:00 12/14/17 12:00 12/14/17 12:00 Intake & Output 12/13/17 12/14/17 12/15/17 00:59 00:59 00:59 Intake Total 3176 850 Output Total 500 300 Balance 2676 550 Weight 51.9 kg 57 kg 57.5 kg General appearance: PRESENT: thin Head exam: PRESENT: atraumatic, normocephalic Eye exam: PRESENT: conjunctiva pink, EOMI, PERRLA. ABSENT: scleral icterus Neck exam: ABSENT: carotid bruit, JVD, lymphadenopathy, thyromegaly Respiratory exam: PRESENT: clear to auscultation dionte. ABSENT: rales, rhonchi, wheezes Cardiovascular exam: PRESENT: RRR. ABSENT: diastolic murmur, rubs, systolic murmur GI/Abdominal exam: PRESENT: normal bowel sounds, soft. ABSENT: distended, guarding, mass, organolmegaly, rebound, tenderness Neurological exam: PRESENT: alert, awake, oriented to person, oriented to place , oriented to time, oriented to situation, CN II-XII grossly intact. ABSENT: motor sensory deficit Results Laboratory Results: 12/12/17 06:31 Impressions: Chest X-Ray 12/11/17 18:24 IMPRESSION: NO ACUTE RADIOGRAPHIC FINDING IN THE CHEST. Chest/Abdomen CTA 12/11/17 20:24 IMPRESSION: 1. There is no evidence of pulmonary emboli. 2. Mild centrilobular pulmonary emphysema. 3. Large lower esophageal mass. Abdomen/Pelvis CT 12/12/17 11:42 IMPRESSION: Distal esophageal neoplasm extending into the gastric cardia. Liver metastatic lesions. Assessment & Plan - Diagnosis (1) Metastatic disease Is this a current diagnosis for this admission?: Yes (2) Dysphasia Is this a current diagnosis for this admission?: Yes Plan: surgical consult was placed for gastric tube placement (3) Esophageal cancer Is this a current diagnosis for this admission?: Yes (4) Intractable pain Is this a current diagnosis for this admission?: Yes Plan: Dr Nesbitt increased fentanyl patch - Time Time Spent with patient: continue IV hydration Time Spent with patient: 25-34 minutes
[2017-12-14] MEDS: IPRATROPIUM/ALBUTEROL 0.5-2.5 MG/3 ML AMPUL NEB PRN (21:31)
[2017-12-15] MEDS: DEXTROSE 5%-NORMAL SALINE 1,000 ML IV PRN ×2 (00:10→22:31)
[2017-12-15] MEDS: PROMETHAZINE HCL INJ 25 MG/1 ML VIAL IV PRN ×4 (02:50→18:20)
[2017-12-15] MEDS: HYDROMORPHONE HCL INJ/PF 2 MG/ML AMPULE IV PRN ×7 (02:50→21:13)
--- NOTE | 2017-12-15 08:09 | PDOC PROGRESS REPORT ---
Subjective Progress Note for:: 12/15/17 Subjective:: Patient without new complaints today. Continues to enjoy putting food and drink in his mouth and then spitting everything back out. Not able to swallow anything. Pain controlled. He told his to go home and get some rest today. Reason For Visit: TERMINAL CA INTRACTABLE PAIN Physical Exam Vital Signs: Temp Pulse Resp BP Pulse Ox 97.4 F 55 L 18 121/73 98 12/14/17 21:01 12/14/17 21:31 12/14/17 21:31 12/14/17 21:01 12/15/17 00:24 Intake & Output 12/14/17 12/15/17 12/16/17 06:59 06:59 06:59 Intake Total 850 1160 Output Total 300 Balance 550 1160 Weight 57.5 kg 56.2 kg General appearance: PRESENT: no acute distress Respiratory exam: PRESENT: unlabored Neurological exam: PRESENT: alert, awake Psychiatric exam: PRESENT: anxious, appropriate affect Skin exam: PRESENT: normal color Results Laboratory Results: 12/12/17 06:31 Impressions: Chest X-Ray 12/11/17 18:24 IMPRESSION: NO ACUTE RADIOGRAPHIC FINDING IN THE CHEST. Chest/Abdomen CTA 12/11/17 20:24 IMPRESSION: 1. There is no evidence of pulmonary emboli. 2. Mild centrilobular pulmonary emphysema. 3. Large lower esophageal mass. Abdomen/Pelvis CT 12/12/17 11:42 IMPRESSION: Distal esophageal neoplasm extending into the gastric cardia. Liver metastatic lesions. Assessment & Plan - Diagnosis (1) Esophageal cancer Is this a current diagnosis for this admission?: Yes Plan: Patient has chosen palliative measures only. No aggressive treatment. EGD this admission showed complete blockage of esophagus. (2) Intractable pain Is this a current diagnosis for this admission?: Yes Plan: Currently controlled. (3) Malnutrition Qualifiers: Malnutrition type: protein-calorie malnutrition Protein-calorie malnutrition severity: severe Qualified Code(s): E43 - Unspecified severe protein-calorie malnutrition Is this a current diagnosis for this admission?: Yes Plan: PEG tube to be performed tomorrow. Patient continues to agree with this plan. PT/PTT/PLT all normal. Patient will NOT be made NPO, as he may continue to put liquids in his mouth and spit them out. I have discuss this with the nursing staff. He is not passing anything in to the stomach, so he is safe for surgery with these orders in place. He will remain on MIV fluids. I have requested nutrition consult to help with tube feedings, once possible. Then, meds will be changed from IV to PO. - Plan Summary Plan Summary: He will be discharged home to hospice once PEG in place and patient is tolerating feeding and meds per PEG. He remains comfort measures in all other aspects of his care.
--- NOTE | 2017-12-15 14:03 | PDOC PROGRESS REPORT ---
Subjective Progress Note for:: 12/15/17 Subjective:: Patient seems to be in better spirits He will be scheduled for gastrostomy tube tomorrow morning IV fluids continued Patient developed some mild edema lower extremities, likely secondary to severe malnutrition and hypoalbuminemia Reason For Visit: TERMINAL CA INTRACTABLE PAIN Physical Exam Vital Signs: Temp Pulse Resp BP Pulse Ox 97.4 F 55 L 18 121/73 98 12/14/17 21:01 12/14/17 21:31 12/14/17 21:31 12/14/17 21:01 12/15/17 00:24 Intake & Output 12/14/17 12/15/17 12/16/17 00:59 00:59 00:59 Intake Total 850 1160 Output Total 300 Balance 550 1160 Weight 57 kg 57.5 kg 56.2 kg General appearance: PRESENT: thin Head exam: PRESENT: atraumatic, normocephalic Eye exam: PRESENT: conjunctiva pink, EOMI, PERRLA. ABSENT: scleral icterus Neck exam: ABSENT: carotid bruit, JVD, lymphadenopathy, thyromegaly Respiratory exam: PRESENT: clear to auscultation dionte. ABSENT: rales, rhonchi, wheezes Cardiovascular exam: PRESENT: RRR. ABSENT: diastolic murmur, rubs, systolic murmur GI/Abdominal exam: PRESENT: normal bowel sounds, soft. ABSENT: distended, guarding, mass, organolmegaly, rebound, tenderness Neurological exam: PRESENT: alert, awake, oriented to person, oriented to place , oriented to time, oriented to situation, CN II-XII grossly intact. ABSENT: motor sensory deficit Results Laboratory Results: 12/12/17 06:31 Impressions: Chest X-Ray 12/11/17 18:24 IMPRESSION: NO ACUTE RADIOGRAPHIC FINDING IN THE CHEST. Chest/Abdomen CTA 12/11/17 20:24 IMPRESSION: 1. There is no evidence of pulmonary emboli. 2. Mild centrilobular pulmonary emphysema. 3. Large lower esophageal mass. Abdomen/Pelvis CT 12/12/17 11:42 IMPRESSION: Distal esophageal neoplasm extending into the gastric cardia. Liver metastatic lesions. Assessment & Plan - Diagnosis (1) Metastatic disease Is this a current diagnosis for this admission?: Yes Plan: Stage IV esophageal carcinoma Patient is not a candidate for palliative chemo or radiation therapy Patient had delayed treatment for year and a half unfortunately Patient opted to have a feeding tube so that his life would be somewhat prolonged Patient is to go home with hospice after feedings are initiated (2) Dysphasia Is this a current diagnosis for this admission?: Yes Plan: Complete obstruction of the esophagus with a large tumor Patient drinks water and spits (3) Esophageal cancer Is this a current diagnosis for this admission?: Yes (4) Intractable pain Is this a current diagnosis for this admission?: Yes Plan: Fentanyl patch has been increased - Time Time Spent with patient: For insertion of the gastric tube in a.m. by Dr. Sims Time Spent with patient: 25-34 minutes
[2017-12-16] MEDS: HYDROMORPHONE HCL INJ/PF 2 MG/ML AMPULE IV PRN ×9 (02:58→23:24)
[2017-12-16] MEDS: PROMETHAZINE HCL INJ 25 MG/1 ML VIAL IV PRN ×3 (06:19→09:57)
[2017-12-16] MEDS ORDERED: LORAZEPAM INJ 2 MG/1 ML VIAL IV ONE (07:57)
--- NOTE | 2017-12-16 08:02 | PDOC PROGRESS REPORT ---
Subjective Progress Note for:: 12/16/17 Subjective:: Patient is sitting up in bed with dry heaves. Very little liquid coming up, but wretching. Complains of nerves and wanting a cigarette. Still angry about everything. Wants to know why there is no surgery schedule. Reason For Visit: TERMINAL CA INTRACTABLE PAIN Physical Exam Vital Signs: Temp Pulse Resp BP Pulse Ox 97.9 F 63 15 145/93 H 100 12/15/17 19:55 12/15/17 19:55 12/15/17 19:55 12/15/17 19:55 12/15/17 19:55 Intake & Output 12/15/17 12/16/17 12/17/17 06:59 06:59 06:59 Intake Total 1160 10 Balance 1160 10 Weight 56.2 kg 61 kg General appearance: PRESENT: no acute distress, thin Extremities exam: ABSENT: pedal edema Neurological exam: PRESENT: alert, awake, oriented to person, oriented to place , oriented to time, oriented to situation Psychiatric exam: PRESENT: agitated Focused psych exam: PRESENT: restlessness Skin exam: PRESENT: normal color Results Laboratory Results: 12/12/17 06:31 Impressions: Chest X-Ray 12/11/17 18:24 IMPRESSION: NO ACUTE RADIOGRAPHIC FINDING IN THE CHEST. Chest/Abdomen CTA 12/11/17 20:24 IMPRESSION: 1. There is no evidence of pulmonary emboli. 2. Mild centrilobular pulmonary emphysema. 3. Large lower esophageal mass. Abdomen/Pelvis CT 12/12/17 11:42 IMPRESSION: Distal esophageal neoplasm extending into the gastric cardia. Liver metastatic lesions. Assessment & Plan - Diagnosis (1) Esophageal cancer Is this a current diagnosis for this admission?: Yes (2) Intractable pain Is this a current diagnosis for this admission?: Yes (3) Malnutrition Qualifiers: Malnutrition type: protein-calorie malnutrition Protein-calorie malnutrition severity: severe Qualified Code(s): E43 - Unspecified severe protein-calorie malnutrition Is this a current diagnosis for this admission?: Yes - Plan Summary Plan Summary: I spent 35 minutes with the patient this morning, trying again to calm him down. I have ordered ativan 1 mg IV x 1 dose now. We again discussed NPO status until after surgery. He agrees to limit the amount of water he is using to rinse his mouth out. He continues to have wretching, despite esophageal blockage. Hopefully, PEG tube will help get meds and nutrition. We discussed possibility of re-feeding syndrome, as brought up by nutrition consult. Plan for home with Hospice once PEG is in and he is tolerating meds via PEG.
--- NOTE | 2017-12-16 12:31 | PDOC PROGRESS REPORT ---
Subjective Progress Note for:: 12/16/17 Subjective:: Patient smoking on the downstairs. Brought back up to room. UnAble to handle his secretions. Reason For Visit: TERMINAL CA INTRACTABLE PAIN Physical Exam Vital Signs: Temp Pulse Resp BP Pulse Ox 97.8 F 54 L 18 117/68 99 12/16/17 08:19 12/16/17 10:07 12/16/17 10:07 12/16/17 08:19 12/16/17 08:19 Intake & Output 12/15/17 12/16/17 12/17/17 06:59 06:59 06:59 Intake Total 1160 10 Balance 1160 10 Weight 56.2 kg 61 kg General appearance: PRESENT: other - Patient cachectic; somnolent spitting cup. Very drowsy. GI/Abdominal exam: PRESENT: other - Scaphoid abdomen, soft, no distention. Results Laboratory Results: 12/12/17 06:31 Impressions: Chest X-Ray 12/11/17 18:24 IMPRESSION: NO ACUTE RADIOGRAPHIC FINDING IN THE CHEST. Chest/Abdomen CTA 12/11/17 20:24 IMPRESSION: 1. There is no evidence of pulmonary emboli. 2. Mild centrilobular pulmonary emphysema. 3. Large lower esophageal mass. Abdomen/Pelvis CT 12/12/17 11:42 IMPRESSION: Distal esophageal neoplasm extending into the gastric cardia. Liver metastatic lesions. Assessment & Plan - Diagnosis (1) Esophageal cancer Is this a current diagnosis for this admission?: Yes Plan: Distal obstructing esophageal carcinoma extending into gastric cardia, with visceral metastases to DNR status. We have been asked to place an operative feeding tube, specifically gastrostomy tube versus jejunostomy tube. Graft Discussion: 1. With patient's , and nursing staff at bedside, I discussed the mechanics of the operation and expectations following placement; moreover, I discussed the need for general anesthesia, and the cardiovascular and respiratory risks associated with anesthesia, specifically for post operative ventilatory support. This was discussed in the context of the patient's current DNR status. 2. I discussed the patient's situation with the anesthesiologist, as well as the primary care service. We will review the record, and decide whether to proceed so long as the and expressed their understanding and agreed to proceed.
[2017-12-16] MEDS ORDERED: BUPIVACAINE HCL 0.25 % INJ/PF (2.5 MG/1 ML) 30 ML VIAL ONE (16:02)
[2017-12-16] MEDS ORDERED: LIDOCAINE 0.5% INJ-PF (5 MG/ML) 50 ML SDV ONE (16:02)
[2017-12-16] MEDS ORDERED: ONDANSETRON HCL INJ/PF 4 MG/2 ML SDV ONE (16:19)
[2017-12-16] MEDS ORDERED: MORPHINE SULFATE 10 MG/ML INJ ONE (16:19)
[2017-12-16] MEDS ORDERED: PROPOFOL INJ 200 MG/20 ML VIAL IV ONE (16:19)
[2017-12-16] MEDS ORDERED: FENTANYL CITRATE INJ/PF 100 MCG/2 ML AMPUL ONE (16:19)
[2017-12-16] MEDS ORDERED: MIDAZOLAM 2 MG/2 ML INJ ONE (16:19)
[2017-12-16] MEDS ORDERED: CEFAZOLIN INJ 1 GM VIAL ONE (17:16)
[2017-12-16] MEDS ORDERED: PROMETHAZINE HCL INJ 25 MG/1 ML VIAL IV PRN ×2 (17:23)
[2017-12-16] MEDS ORDERED: MEPERIDINE HCL/PF INJ 25 MG/1 ML DISP.SYRIN IV PRN (17:23)
[2017-12-16] MEDS ORDERED: MORPHINE SULFATE 10 MG/ML INJ IV PRN (17:23)
[2017-12-16] MEDS ORDERED: DIPHENHYDRAMINE HCL 50 MG/ML VIAL IV PRN (17:23)
[2017-12-16] MEDS ORDERED: FENTANYL CITRATE INJ/PF 100 MCG/2 ML AMPUL IV PRN ×3 (17:23)
[2017-12-16] MEDS ORDERED: BUPIVACAINE INJ/PF LIPOSOME/PF 266 MG/20 ML SDV ONE (17:25)
[2017-12-16] MEDS ORDERED: HALOPERIDOL LACTATE INJ 5 MG/1 ML VIAL IV PRN (17:41)
--- NOTE | 2017-12-16 17:46 | PDOC PROGRESS REPORT ---
Subjective Progress Note for:: 12/16/17 Subjective:: The patient is an unfortunate 57-year-old gentleman with stage IV esophageal cancer. At this point he has total occlusion of his esophagus. Was notified by Dr. Sims today that he wanted me to go talk to the patient prior to the procedure. Apparently the patient was given some IV Ativan due to agitation as well as IV Dilaudid and he became quite obtunded for a period of time. Then he began having some hallucinations. By the time I saw him all of this medication is worn off. He does state that he is seeing people in the room that are not there while I am there. The patient remains extremely angry. I spent a long amount of time with him discussing his diagnosis. We discussed the benefit of having this PEG tube placed and getting nutrition. We did discuss that his life expectancy is extremely short without this being in here. He states that he does not know whether he wants to have any treatment. He has previously told Dr. Nesbitt that he did not want to have any aggressive treatment. Basically I think he is just very confused by this whole situation. Eventually he agreed to have the PEG tube placed today. I notified Dr. Sims and he is going to have the procedure performed today. He is angry that he has n.p.o. prior to the procedure. He asked if he could go back outside to smoke. He states his pain is better controlled with the fentanyl patch but he is still having pain. He continues to have hallucinations and he continues to be angry and agitated. Reason For Visit: TERMINAL CA INTRACTABLE PAIN Physical Exam Vital Signs: Temp Pulse Resp BP Pulse Ox 98.2 F 83 17 131/74 H 100 12/16/17 16:43 12/16/17 16:43 12/16/17 16:43 12/16/17 16:43 12/16/17 16:43 Intake & Output 12/15/17 12/16/17 12/17/17 06:59 06:59 06:59 Intake Total 1160 10 Balance 1160 10 Weight 56.2 kg 61 kg General appearance: PRESENT: thin, other - This is a thin cachectic ill- appearing gentleman. He is quite agitated at the time of my visit Head exam: PRESENT: other - Bitemporal muscle wasting Eye exam: PRESENT: conjunctiva pink, EOMI, PERRLA. ABSENT: scleral icterus Mouth exam: PRESENT: moist, tongue midline Respiratory exam: PRESENT: clear to auscultation dionte, other - He is somewhat diminished in the lower bases but his lungs sound fairly clear. ABSENT: rales, rhonchi, wheezes Cardiovascular exam: PRESENT: RRR. ABSENT: diastolic murmur, rubs, systolic murmur GI/Abdominal exam: PRESENT: normal bowel sounds, soft. ABSENT: distended, guarding, mass, organolmegaly, rebound, tenderness Rectal exam: PRESENT: deferred Extremities exam: PRESENT: full ROM. ABSENT: calf tenderness, clubbing, pedal edema Musculoskeletal exam: PRESENT: ambulatory Neurological exam: PRESENT: alert, awake, oriented to person, oriented to place , oriented to time, oriented to situation, CN II-XII grossly intact, other - He is extremely agitated. ABSENT: motor sensory deficit Psychiatric exam: PRESENT: agitated, anxious, unusual affect, other - States he is still seeing people in the room that are not there.. ABSENT: appropriate affect Skin exam: PRESENT: dry, intact, warm. ABSENT: cyanosis, rash Results Laboratory Results: 12/12/17 06:31 Impressions: Chest X-Ray 12/11/17 18:24 IMPRESSION: NO ACUTE RADIOGRAPHIC FINDING IN THE CHEST. Chest/Abdomen CTA 12/11/17 20:24 IMPRESSION: 1. There is no evidence of pulmonary emboli. 2. Mild centrilobular pulmonary emphysema. 3. Large lower esophageal mass. Abdomen/Pelvis CT 12/12/17 11:42 IMPRESSION: Distal esophageal neoplasm extending into the gastric cardia. Liver metastatic lesions. Assessment & Plan - Diagnosis (1) Esophageal cancer, stage IV Is this a current diagnosis for this admission?: Yes Plan: The patient's cancer is incurable. I am going to try to get in touch with Dr. Nesbitt in the morning and discussed the plan of care with her. At this point I have encouraged the patient to take it just 1 step at a time. The first step would be to have this PEG tube placed and get started on tube feedings. He is aware that he would be at risk for refeeding syndrome and we likely would have to slowly titrate his tube feedings over a period of a few days. He states that he does understand this. Also I am concerned due to his hallucinations that he could possibly have some brain involvement. I will discuss with Dr. Perdomo whether she wishes to pursue an MRI of the brain. Certainly for prognostic purposes this would be helpful. I will continue to have conversations with him and his family regarding goals of care. (3) Intractable pain Is this a current diagnosis for this admission?: Yes Plan: Much better controlled on fentanyl patch. He has IV Dilaudid for breakthrough pain. (4) Agitation Is this a current diagnosis for this admission?: Yes Plan: The patient is significantly agitated and angry. He is shouting at his in the room. He received 1 mg of IV Ativan and became somewhat obtunded. Due to his hallucinations and inappropriate affect and behavior I am going to have 2 mg of IV Haldol available as needed and will see how he does overnight. (5) Hallucinations Is this a current diagnosis for this admission?: Yes Plan: Will discuss with Dr. Nesbitt whether to get an MRI of the brain. (6) Severe protein-calorie malnutrition Is this a current diagnosis for this admission?: Yes Plan: He will have a PEG tube placed today. We will get the clinical dietitian to help us begin tube feedings. (7) Tobacco dependence Is this a current diagnosis for this admission?: Yes Plan: He has lobby privileges to go outside and smoke. This is not ideal but I believe he would check himself out of the hospital AMA if we did not allow him to do this. He is declined a nicotine patch and states that it sevilla his skin. (8) Do not resuscitate Is this a current diagnosis for this admission?: Yes - Time Time Spent with patient: 25-34 minutes - Inpatient Certification Based on my medical assessment, after consideration of the patient's comorbidities, presenting symptoms, or acuity I expect that the services needed warrant INPATIENT care.: Yes I certify that my determination is in accordance with my understanding of Medicare's requirements for reasonable and necessary INPATIENT services [42 CFR 412.3e].: Yes Medical Necessity: Need for Surgery - Inpatient hospitalization remains necessary. The patient is going to the operating room today to have an open PEG tube placed. Timing of disposition will be determined by his postoperative course. He will need to be started on tube feedings. He is at risk of refeeding syndrome. And ultimately we need to come up with a plan for this gentleman as an outpatient. Certainly hospice seems to be the best option., Other
--- NOTE | 2017-12-16 18:11 | Operative Report ---
Nonrecallable Operative Report DATE OF SURGERY: 12/16/17 PREOPERATIVE DIAGNOSIS: Obstructing distal esophageal carcinoma POSTOPERATIVE DIAGNOSIS: Same OPERATION: Mini laparotomy with operative 26 Burkinan gastrostomy tube placement SURGEON: SCARLET GOLDSMITH ANESTHESIA: GA TISSUE REMOVED OR ALTERED: None COMPLICATIONS: None ESTIMATED BLOOD LOSS: Scant INTRAOPERATIVE FINDINGS: See below PROCEDURE: The patient was taken from the preop holding her to the main operating room where general anesthesia was induced. Arms were abducted, abdomen was exposed, prepped and draped sterile fashion with Betadine. Surgical plan surgical timeout were conducted. Midline was marked, and the cystoscope percent Marcaine , and a 6 cm long midline incision was made from the subxiphoid area down towards the umbilicus. Peritoneal cavity was sharply entered. There was no gross evidence of soilage, or peritoneal implants. I could palpate the tumor at the GE junction. The mid body, and distal stomach were mobile. I felt that a operative gastrostomy tube would be safe and appropriate. Suitable site for placement of the gastrostomy was chosen on the greater curvature, mid anterior position. 2 pursestrings of 3-0 PDS suture we then secured into the seromuscular layer of the anterior stomach wall. We then chose a suitable site for placement of the gastrostomy tube in left upper quadrant abdominal wall. Skin with any status quarter percent Marcaine. 10 blade was used to make an incision and skin, and Aleta clamp used to pass a 26 Burkinan Malecot tube through the anterior abdominal wall. The electrocautery was used to make a gastrotomy, and then the gastrostomy tube was placed into the lumen of the stomach. The PDS sutures then secured in a sequential fashion. Multiple PDS sutures were now used to secure the anterior stomach wall up against the parietal peritoneal layer. We then secured the gastrostomy tube to the skin with a 0 Prolene suture. We flushed the gastrostomy tube several times with saline and it function satisfactorily with the return of typical gastric contents. There was no bleeding. We reinspected the pull-up site against the anterior abdominal wall and there was minimal if any tension. I felt the operation was complete. Sponge and needle counts are correct. Abdominal wall closed with 2-0 running PDS sutures and skin closed with tammy. 20 cc of full-strength Exparel deployed into the subcutaneous tissues. Sterile dressing was applied. Patient tolerated the procedure well, extubated, and taken to the recovery in stable condition.
[2017-12-16] MEDS: DEXTROSE 5%-NORMAL SALINE 1,000 ML IV PRN (23:30)
[2017-12-17] MEDS: HYDROMORPHONE HCL INJ/PF 2 MG/ML AMPULE IV PRN ×7 (02:52→20:44)
--- NOTE | 2017-12-17 08:17 | PDOC PROGRESS REPORT ---
Subjective Progress Note for:: 12/17/17 Subjective:: Patient remains a bit sleepy and confused from meds. is at bedside this morning. He states that the procedure yesterday went well, except for the side effects from ativan and anesthesia causing hallucinations. Pain well controlled currently. They have not yet started to use the PEG tube. Reason For Visit: TERMINAL CA INTRACTABLE PAIN Physical Exam Vital Signs: Temp Pulse Resp BP Pulse Ox 97.5 F 75 18 131/62 H 96 12/16/17 22:00 12/16/17 22:00 12/16/17 22:00 12/16/17 22:00 12/16/17 22:00 Intake & Output 12/16/17 12/17/17 12/18/17 06:59 06:59 06:59 Intake Total 10 6397 Output Total 1070 Balance 10 5327 Weight 61 kg 65 kg General appearance: PRESENT: no acute distress, thin Respiratory exam: PRESENT: unlabored Extremities exam: ABSENT: pedal edema Neurological exam: PRESENT: alert, awake, oriented to person, oriented to place , oriented to time, oriented to situation Psychiatric exam: PRESENT: appropriate affect Skin exam: PRESENT: normal color Results Laboratory Results: 12/12/17 06:31 Impressions: Chest X-Ray 12/11/17 18:24 IMPRESSION: NO ACUTE RADIOGRAPHIC FINDING IN THE CHEST. Chest/Abdomen CTA 12/11/17 20:24 IMPRESSION: 1. There is no evidence of pulmonary emboli. 2. Mild centrilobular pulmonary emphysema. 3. Large lower esophageal mass. Abdomen/Pelvis CT 12/12/17 11:42 IMPRESSION: Distal esophageal neoplasm extending into the gastric cardia. Liver metastatic lesions. Assessment & Plan - Diagnosis (1) Esophageal cancer Is this a current diagnosis for this admission?: Yes Plan: Patient has elected palliative care. His plans are to be discharged with Hospice within the next 1-2 days. (2) Intractable pain Is this a current diagnosis for this admission?: Yes Plan: Currently well controlled with meds. As soon as OK to use PEG tube, will change all IV meds over to PEG. Also consider starting stomach protector per PEG. (3) Malnutrition Qualifiers: Malnutrition type: protein-calorie malnutrition Protein-calorie malnutrition severity: severe Qualified Code(s): E43 - Unspecified severe protein-calorie malnutrition Is this a current diagnosis for this admission?: Yes Plan: Appreciate Nutrition's recommendations. Plan to start, as per their recommendations as soon as OK to use PEG. Will start slow and gradually increase as patient tolerates. Patient is still being allowed to put food and drink in mouth and spit it back out just for the pleasure of the taste. - Plan Summary Plan Summary: I will follow HIM PRN. Again, plan is to go home with Hospice.
[2017-12-17 08:27] LABS: ABSOLUTE EOSINOPHILS # (AUTO) 0.1 10^3/uL (0.0-0.6); ABSOLUTE LYMPHOCYTES (AUTO) 0.6 10^3/uL (0.5-4.7); ABSOLUTE MONOCYTES (AUTO) 0.7 10^3/uL (0.1-1.4); ABSOLUTE NEUT (AUTO) 9.6 10^3/uL (1.7-8.2); BASOPHILS % (AUTO) 0.4 % (0-2); EOSINOPHILS % (AUTO) 0.8 % (0-6); HEMOGLOBIN 10.9 g/dL (13.5-17.0); LYMPHOCYTES % (AUTO) 5.5 % (13-45); MEAN CORPUSCULAR HEMOGLOBIN 25.5 pg (27.0-33.4); MEAN CORPUSCULAR VOLUME 80 fl (80-97); MONOCYTES % (AUTO) 6.7 % (3-13); PLATELET COUNT 345 10^3/uL (150-450); RED BLOOD COUNT 4.26 10^6/uL (4.35-5.55); SEGMENTED NEUTROPHILS % (AUTO) 86.6 % (42-78); TOTAL CELLS COUNTED % (AUTO) 100 %; WHITE BLOOD COUNT 11.1 10^3/uL (4.0-10.5)
[2017-12-17 08:44] LABS: ALANINE AMINOTRANSFERASE 23 U/L (21-72); ALBUMIN 2.5 g/dL (3.5-5.0); ALKALINE PHOSPHATASE 50 U/L (38-126); ANION GAP 7 (5-19); ASPARTATE AMINO TRANSFERASE 18 U/L (17-59); BILIRUBIN,DIRECT 0.2 mg/dL (0.0-0.4); BILIRUBIN,TOTAL 0.4 mg/dL (0.2-1.3); BLOOD UREA NITROGEN 12 mg/dL (7-20); CALCIUM 9.8 mg/dL (8.4-10.2); CARBON DIOXIDE 31 mmol/L (22-30); CHLORIDE 107 mmol/L (98-107); GLUCOSE 106 mg/dL (75-110); PHOSPHORUS 2.1 mg/dL (2.5-4.5); TOTAL PROTEIN 4.9 g/dL (6.3-8.2)
[2017-12-17 08:49] LABS: POTASSIUM 2.9 mmol/L (3.6-5.0)
[2017-12-17] MEDS ORDERED: HALOPERIDOL LACTATE INJ 5 MG/1 ML VIAL IV PRN (09:12)
[2017-12-17] MEDS ORDERED: LORAZEPAM INJ 2 MG/1 ML VIAL IV PRN (09:13)
[2017-12-17] MEDS: IPRATROPIUM/ALBUTEROL 0.5-2.5 MG/3 ML AMPUL NEB PRN (09:15)
[2017-12-17] MEDS: DEXTROSE 5%-NORMAL SALINE 1,000 ML IV PRN (09:35)
[2017-12-17] MEDS: FENTANYL 50 MCG/HR PATCH.TD72 TD SCH (09:36)
[2017-12-17] MEDS: MORPHINE SULFATE 10 MG/5 ML ORAL SOLUTION UDCUP PO SCH ×3 (14:52→22:39)
--- NOTE | 2017-12-17 16:52 | PDOC PROGRESS REPORT ---
Subjective Progress Note for:: 12/17/17 Subjective:: abdominal incisional pains Reason For Visit: TERMINAL CA INTRACTABLE PAIN Physical Exam Vital Signs: Temp Pulse Resp BP Pulse Ox 97.6 F 63 17 109/70 98 12/17/17 11:37 12/17/17 11:37 12/17/17 11:37 12/17/17 11:37 12/17/17 11:37 Intake & Output 12/16/17 12/17/17 12/18/17 06:59 06:59 06:59 Intake Total 10 6397 Output Total 1070 Balance 10 5327 Weight 61 kg 65 kg Exam: G-Tube in place drained about 400 ccs of clear light greenish fluid since insertion yesterday. Abd is flat and soft. Dressing dry. Results Laboratory Results: 12/17/17 08:11 12/17/17 08:11 12/17/17 12/17/17 08:11 08:11 WBC 11.1 H RBC 4.26 L Hgb 10.9 L Hct 34.0 L MCV 80 MCH 25.5 L MCHC 32.0 RDW 19.0 H Plt Count 345 Seg Neutrophils % 86.6 H Lymphocytes % 5.5 L Monocytes % 6.7 Eosinophils % 0.8 Basophils % 0.4 Absolute Neutrophils 9.6 H Absolute Lymphocytes 0.6 Absolute Monocytes 0.7 Absolute Eosinophils 0.1 Absolute Basophils 0.0 Sodium 145.0 Potassium 2.9 L* Chloride 107 Carbon Dioxide 31 H Anion Gap 7 BUN 12 Creatinine 0.62 Est GFR ( Amer) > 60 Est GFR (Non-Af Amer) > 60 Glucose 106 Calcium 9.8 Phosphorus 2.1 L Magnesium 1.6 Total Bilirubin 0.4 AST 18 ALT 23 Alkaline Phosphatase 50 Total Protein 4.9 L Albumin 2.5 L Impressions: Chest X-Ray 12/11/17 18:24 IMPRESSION: NO ACUTE RADIOGRAPHIC FINDING IN THE CHEST. Chest/Abdomen CTA 12/11/17 20:24 IMPRESSION: 1. There is no evidence of pulmonary emboli. 2. Mild centrilobular pulmonary emphysema. 3. Large lower esophageal mass. Abdomen/Pelvis CT 12/12/17 11:42 IMPRESSION: Distal esophageal neoplasm extending into the gastric cardia. Liver metastatic lesions. Assessment & Plan - Time Time Spent with patient: 15-24 minutes - Plan Summary Plan Summary: Start G-Tube feedings slowly
[2017-12-17] MEDS: PROMETHAZINE HCL INJ 25 MG/1 ML VIAL IV PRN ×2 (18:29→22:39)
[2017-12-17] MEDS ORDERED: SUCCINYLCHOLINE CHLORIDE INJ 200 MG/10 ML VIAL ONE (19:47)
--- NOTE | 2017-12-17 19:47 | PDOC PROGRESS REPORT ---
Subjective Progress Note for:: 12/17/17 Subjective:: The patient seems much improved. He had his PEG tube placed yesterday and tolerated the procedure well. He is going to start his tube feedings this afternoon. He is spoken with hospice and plans to go home with hospice as soon as he is tolerating his tube feedings. He seems to be coming to terms with his diagnosis and prognosis. Today he continues to have some issues with pain. We are going to start him on some oral morphine in addition to his fentanyl patch and try to get him stabilized for discharge. He is in agreement with that. Reason For Visit: TERMINAL CA INTRACTABLE PAIN Physical Exam Vital Signs: Temp Pulse Resp BP Pulse Ox 98 F 82 18 114/67 98 12/17/17 17:00 12/17/17 17:00 12/17/17 17:00 12/17/17 17:00 12/17/17 17:00 Intake & Output 12/16/17 12/17/17 12/18/17 06:59 06:59 06:59 Intake Total 10 6397 Output Total 1070 Balance 10 5327 Weight 61 kg 65 kg General appearance: PRESENT: thin, other - Cachectic ill-appearing. He appears to be somewhat uncomfortable Head exam: PRESENT: atraumatic, normocephalic Mouth exam: PRESENT: moist, tongue midline Respiratory exam: PRESENT: decreased breath sounds, rhonchi Cardiovascular exam: PRESENT: RRR. ABSENT: diastolic murmur, rubs, systolic murmur GI/Abdominal exam: PRESENT: normal bowel sounds, soft. ABSENT: distended, guarding, mass, organolmegaly, rebound, tenderness Rectal exam: PRESENT: deferred Musculoskeletal exam: PRESENT: ambulatory Neurological exam: PRESENT: alert, awake, oriented to person, oriented to place , oriented to time, oriented to situation, CN II-XII grossly intact. ABSENT: motor sensory deficit Psychiatric exam: PRESENT: appropriate affect, depressed. ABSENT: agitated, anxious Skin exam: PRESENT: dry, intact, warm. ABSENT: cyanosis, rash Results Laboratory Results: 12/17/17 08:11 12/17/17 08:11 12/17/17 12/17/17 08:11 08:11 WBC 11.1 H RBC 4.26 L Hgb 10.9 L Hct 34.0 L MCV 80 MCH 25.5 L MCHC 32.0 RDW 19.0 H Plt Count 345 Seg Neutrophils % 86.6 H Lymphocytes % 5.5 L Monocytes % 6.7 Eosinophils % 0.8 Basophils % 0.4 Absolute Neutrophils 9.6 H Absolute Lymphocytes 0.6 Absolute Monocytes 0.7 Absolute Eosinophils 0.1 Absolute Basophils 0.0 Sodium 145.0 Potassium 2.9 L* Chloride 107 Carbon Dioxide 31 H Anion Gap 7 BUN 12 Creatinine 0.62 Est GFR ( Amer) > 60 Est GFR (Non-Af Amer) > 60 Glucose 106 Calcium 9.8 Phosphorus 2.1 L Magnesium 1.6 Total Bilirubin 0.4 AST 18 ALT 23 Alkaline Phosphatase 50 Total Protein 4.9 L Albumin 2.5 L Impressions: Chest X-Ray 12/11/17 18:24 IMPRESSION: NO ACUTE RADIOGRAPHIC FINDING IN THE CHEST. Chest/Abdomen CTA 12/11/17 20:24 IMPRESSION: 1. There is no evidence of pulmonary emboli. 2. Mild centrilobular pulmonary emphysema. 3. Large lower esophageal mass. Abdomen/Pelvis CT 12/12/17 11:42 IMPRESSION: Distal esophageal neoplasm extending into the gastric cardia. Liver metastatic lesions. Assessment & Plan - Diagnosis (1) Esophageal cancer, stage IV Is this a current diagnosis for this admission?: Yes Plan: Not a candidate for treatment. The plan is to go home with home hospice services as soon as he can tolerate his tube feedings. Patient seems to be coming to terms with his diagnosis. (2) Dysphagia Is this a current diagnosis for this admission?: Yes Plan: We are going to initiate tube feedings today. I will check labs in the morning as he is at risk of refeeding syndrome. Hopefully we can get him home the next day or 2 with hospice. (3) Intractable pain Is this a current diagnosis for this admission?: Yes Plan: Much better controlled on fentanyl patch. Unfortunately we do not have Roxanol here in the hospital. I have ordered morphine sulfate oral solution but hopefully he can tolerate. Once we get his PEG tube working we could administer pain medications via that. He will continue to have IV Dilaudid available as well. (4) Agitation Is this a current diagnosis for this admission?: Yes Plan: Much improved. He has as needed Haldol available as needed. (5) Hallucinations Is this a current diagnosis for this admission?: Yes Plan: The patient declines MRI. He could have brain involvement. (6) Severe protein-calorie malnutrition Is this a current diagnosis for this admission?: Yes Plan: He will be started on tube feedings. (7) Tobacco dependence Is this a current diagnosis for this admission?: Yes Plan: He has lobby privileges to go outside and smoke. This is not ideal but I believe he would check himself out of the hospital AMA if we did not allow him to do this. He is declined a nicotine patch and states that it sevilla his skin. (8) Do not resuscitate Is this a current diagnosis for this admission?: Yes - Time Time Spent with patient: 25-34 minutes - Inpatient Certification Medical Necessity: Other - Inpatient hospitalization remains necessary. We are going to start the patient's tube feedings and make sure that he can tolerate them prior to discharge. As soon as he is stable we will discharge him home with home hospice services.
[2017-12-18] MEDS: HYDROMORPHONE HCL INJ/PF 2 MG/ML AMPULE IV PRN ×8 (00:20→23:34)
[2017-12-18] MEDS: MORPHINE SULFATE 10 MG/5 ML ORAL SOLUTION UDCUP PO SCH ×4 (03:18→17:09)
[2017-12-18] MEDS: PROMETHAZINE HCL INJ 25 MG/1 ML VIAL IV PRN (05:14)
[2017-12-18 06:38] LABS: ABSOLUTE EOSINOPHILS # (AUTO) 0.1 10^3/uL (0.0-0.6); ABSOLUTE MONOCYTES (AUTO) 0.8 10^3/uL (0.1-1.4); ABSOLUTE NEUT (AUTO) 6.4 10^3/uL (1.7-8.2); BASOPHILS % (AUTO) 0.4 % (0-2); EOSINOPHILS % (AUTO) 1.3 % (0-6); HEMATOCRIT 35.6 % (37.9-51.0); HEMOGLOBIN 11.5 g/dL (13.5-17.0); LYMPHOCYTES % (AUTO) 12.2 % (13-45); MEAN CORPUSCULAR HEMOGLOBIN 25.2 pg (27.0-33.4); MEAN CORPUSCULAR HGB CONC 32.3 g/dL (32.0-36.0); MEAN CORPUSCULAR VOLUME 78 fl (80-97); MONOCYTES % (AUTO) 9.9 % (3-13); PLATELET COUNT 333 10^3/uL (150-450); RED BLOOD COUNT 4.56 10^6/uL (4.35-5.55); RED CELL DISTRIBUTION WIDTH 19.1 % (11.5-14.0); SEGMENTED NEUTROPHILS % (AUTO) 76.2 % (42-78); TOTAL CELLS COUNTED % (AUTO) 100 %; WHITE BLOOD COUNT 8.3 10^3/uL (4.0-10.5)
[2017-12-18 06:59] LABS: ANION GAP 7 (5-19); BLOOD UREA NITROGEN 14 mg/dL (7-20); CALCIUM 10.3 mg/dL (8.4-10.2); CARBON DIOXIDE 32 mmol/L (22-30); CHLORIDE 105 mmol/L (98-107); GLUCOSE 106 mg/dL (75-110); SODIUM 143.5 mmol/L (137-145)
[2017-12-18] MEDS ORDERED: ONDANSETRON 4 MG TAB.RAPDIS PO PRN (07:49)
[2017-12-18] MEDS ORDERED: HALOPERIDOL LACTATE ORAL SOLN 10 MG/5 ML UDCUP NG PRN (07:50)
--- NOTE | 2017-12-18 07:59 | PDOC PROGRESS REPORT ---
Subjective Progress Note for:: 12/18/17 Subjective:: Patient remains angry. States that he has spilled his water in the bed several times. Also states that the tube feedings are not going well. Asks what good all this has done if he is still not getting any nutrition. ROS: Denies any pain. Denies nausea. Still a bit confused at times. Reason For Visit: TERMINAL CA INTRACTABLE PAIN Physical Exam Vital Signs: Temp Pulse Resp BP Pulse Ox 97.6 F 62 17 128/78 H 99 12/17/17 23:01 12/17/17 23:01 12/17/17 23:01 12/17/17 23:01 12/17/17 23:01 Intake & Output 12/17/17 12/18/17 12/19/17 06:59 06:59 06:59 Intake Total 6397 1610 Output Total 1070 300 Balance 5327 1310 Weight 65 kg 62.8 kg General appearance: PRESENT: no acute distress, thin Exam: 57 year old male sitting up in bed doing puzzles. Mouth exam: PRESENT: moist, tongue midline Respiratory exam: PRESENT: unlabored GI/Abdominal exam: PRESENT: other - PEG tube placed. Appears clean and dry. Extremities exam: ABSENT: pedal edema Neurological exam: PRESENT: alert, awake, oriented to person, oriented to place , oriented to time, oriented to situation Psychiatric exam: PRESENT: appropriate affect Skin exam: PRESENT: normal color Results Laboratory Results: 12/18/17 05:36 12/18/17 05:36 12/17/17 12/17/17 12/17/17 08:11 08:11 20:01 WBC 11.1 H RBC 4.26 L Hgb 10.9 L Hct 34.0 L MCV 80 MCH 25.5 L MCHC 32.0 RDW 19.0 H Plt Count 345 Seg Neutrophils % 86.6 H Lymphocytes % 5.5 L Monocytes % 6.7 Eosinophils % 0.8 Basophils % 0.4 Absolute Neutrophils 9.6 H Absolute Lymphocytes 0.6 Absolute Monocytes 0.7 Absolute Eosinophils 0.1 Absolute Basophils 0.0 Sodium 145.0 Potassium 2.9 L* Chloride 107 Carbon Dioxide 31 H Anion Gap 7 BUN 12 Creatinine 0.62 Est GFR ( Amer) > 60 Est GFR (Non-Af Amer) > 60 Glucose 106 Calcium 9.8 Phosphorus 2.1 L 2.0 L Magnesium 1.6 Total Bilirubin 0.4 AST 18 ALT 23 Alkaline Phosphatase 50 Total Protein 4.9 L Albumin 2.5 L 12/18/17 12/18/17 05:36 05:36 WBC 8.3 RBC 4.56 Hgb 11.5 L Hct 35.6 L MCV 78 L MCH 25.2 L MCHC 32.3 RDW 19.1 H Plt Count 333 Seg Neutrophils % 76.2 Lymphocytes % 12.2 L Monocytes % 9.9 Eosinophils % 1.3 Basophils % 0.4 Absolute Neutrophils 6.4 Absolute Lymphocytes 1.0 Absolute Monocytes 0.8 Absolute Eosinophils 0.1 Absolute Basophils 0.0 Sodium 143.5 Potassium 3.0 L* Chloride 105 Carbon Dioxide 32 H Anion Gap 7 BUN 14 Creatinine 0.63 Est GFR ( Amer) > 60 Est GFR (Non-Af Amer) > 60 Glucose 106 Calcium 10.3 H Phosphorus Magnesium 1.8 Total Bilirubin AST ALT Alkaline Phosphatase Total Protein Albumin Impressions: Chest X-Ray 12/11/17 18:24 IMPRESSION: NO ACUTE RADIOGRAPHIC FINDING IN THE CHEST. Chest/Abdomen CTA 12/11/17 20:24 IMPRESSION: 1. There is no evidence of pulmonary emboli. 2. Mild centrilobular pulmonary emphysema. 3. Large lower esophageal mass. Abdomen/Pelvis CT 12/12/17 11:42 IMPRESSION: Distal esophageal neoplasm extending into the gastric cardia. Liver metastatic lesions. Assessment & Plan - Diagnosis (1) Esophageal cancer Is this a current diagnosis for this admission?: Yes Plan: Plan to go home with Hospice as soon as patient and family are ready. (2) Intractable pain Is this a current diagnosis for this admission?: Yes Plan: Currently controlled. He continues duragesic. He now has morphine PRN via PEG. No IV dilaudid since last night. (3) Malnutrition Qualifiers: Malnutrition type: protein-calorie malnutrition Protein-calorie malnutrition severity: severe Qualified Code(s): E43 - Unspecified severe protein-calorie malnutrition Is this a current diagnosis for this admission?: Yes Plan: All IV nausea meds now changed to PEG. He has tube feedings with plan to increase volume if possible. I have again explained that even with the PEG tube , his body may not accept the feedings and that this is a part of the dying process. I do not believe following further labs will be helpful as patient has elected Hospice care. Hope to see him go home today or tomorrow. - Plan Summary Plan Summary: I will sign off. Please call if needed.
[2017-12-18] MEDS ORDERED: POTASSI CL 20 MEQ/50 ML RIDER 20 MEQ/50 ML RTUPB IV SCH (08:15)
--- NOTE | 2017-12-18 09:29 | PDOC PROGRESS REPORT ---
Subjective Progress Note for:: 12/18/17 Subjective:: No emesis, no active nausea. Not passing gas. Reason For Visit: TERMINAL CA INTRACTABLE PAIN Physical Exam Vital Signs: Temp Pulse Resp BP Pulse Ox 97.7 F 65 16 135/85 H 98 12/18/17 08:00 12/18/17 08:00 12/18/17 08:00 12/18/17 08:00 12/18/17 08:00 Intake & Output 12/17/17 12/18/17 12/19/17 06:59 06:59 06:59 Intake Total 6397 1610 Output Total 1070 300 Balance 5327 1310 Weight 65 kg 62.8 kg General appearance: PRESENT: no acute distress, cooperative GI/Abdominal exam: PRESENT: other - Soft, nondistended, mild epigastric abdominal tenderness. Gastrostomy tube is in place. Results Laboratory Results: 12/18/17 05:36 12/18/17 05:36 12/17/17 12/18/17 12/18/17 20:01 05:36 05:36 WBC 8.3 RBC 4.56 Hgb 11.5 L Hct 35.6 L MCV 78 L MCH 25.2 L MCHC 32.3 RDW 19.1 H Plt Count 333 Seg Neutrophils % 76.2 Lymphocytes % 12.2 L Monocytes % 9.9 Eosinophils % 1.3 Basophils % 0.4 Absolute Neutrophils 6.4 Absolute Lymphocytes 1.0 Absolute Monocytes 0.8 Absolute Eosinophils 0.1 Absolute Basophils 0.0 Sodium 143.5 Potassium 3.0 L* Chloride 105 Carbon Dioxide 32 H Anion Gap 7 BUN 14 Creatinine 0.63 Est GFR ( Amer) > 60 Est GFR (Non-Af Amer) > 60 Glucose 106 Calcium 10.3 H Phosphorus 2.0 L Magnesium 1.8 12/18/17 05:36 WBC RBC Hgb Hct MCV MCH MCHC RDW Plt Count Seg Neutrophils % Lymphocytes % Monocytes % Eosinophils % Basophils % Absolute Neutrophils Absolute Lymphocytes Absolute Monocytes Absolute Eosinophils Absolute Basophils Sodium Potassium Chloride Carbon Dioxide Anion Gap BUN Creatinine Est GFR ( Amer) Est GFR (Non-Af Amer) Glucose Calcium Phosphorus 2.6 Magnesium Impressions: Chest X-Ray 12/11/17 18:24 IMPRESSION: NO ACUTE RADIOGRAPHIC FINDING IN THE CHEST. Chest/Abdomen CTA 12/11/17 20:24 IMPRESSION: 1. There is no evidence of pulmonary emboli. 2. Mild centrilobular pulmonary emphysema. 3. Large lower esophageal mass. Abdomen/Pelvis CT 12/12/17 11:42 IMPRESSION: Distal esophageal neoplasm extending into the gastric cardia. Liver metastatic lesions. Assessment & Plan - Diagnosis (1) Esophageal cancer, stage IV Is this a current diagnosis for this admission?: Yes Plan: Status post gastrostomy tube placement. Concerns about gastric ileus. Will plan small bowel follow via gastrostomy tube today. If stomach appears to be emptying adequately, will start tube feeds.
[2017-12-18] MEDS: IPRATROPIUM/ALBUTEROL 0.5-2.5 MG/3 ML AMPUL NEB PRN (11:07)
[2017-12-18] MEDS ORDERED: HYDROMORPHONE HCL INJ/PF 2 MG/ML AMPULE ONE (14:21)
[2017-12-18] MEDS ORDERED: HYDROMORPHONE HCL INJ/PF 2 MG/ML AMPULE IM ONE (15:00)
[2017-12-18] MEDS ORDERED: NORMAL SALINE 10 ML SDV (AFTER EACH USE) IV PRN (15:51)
--- NOTE | 2017-12-18 15:53 | RADIOLOGY REPORT (SQ) ---
EXAM DESCRIPTION: PICC INSERTION; FLUORO/CV PLACEMENT; U/S GUIDE FOR VASCULAR ACCESS COMPLETED DATE/TIME: 12/18/2017 3:24 pm; 12/18/2017 3:29 pm REASON FOR STUDY: no IV access; IV ACCESS; NO IV ACCESS COMPARISON: None. FLUOROSCOPY TIME: 1.07 minutes. 2 images saved to PACS. TECHNIQUE: Fluoroscopic and ultrasound guided PICC placement. LIMITATIONS: None. PROCEDURE: After written consent and assessment were obtained, the patient was brought into the fluo roscopy room and place supine on the table. Ultrasound evaluation of potential access sites were perf ormed. After successfully identifying a patent right basilic vein, the right arm was prepped and drap ed in a sterile fashion along with the ultrasound probe. The entry site was anesthetized with 1% lido dom. A 21 gauge 7 cm needle was advanced through the skin and into the basilic vein under live ultr asound guidance. An ultrasound image was saved to PACS confirming access site. A .018 guide wire wa s then inserted through the needle and into the venous system. The needle was the removed and an 11 b lade scalpel was used to make a 1cm skin incision. A 5 fr peel-away sheath was advanced over the wir e and into the venous system. A measurement was then made using the existing wire and live fluoroscop ic guidance. The wire was then removed and the trimmed. The PICC was advanced through the peel-away s gaston and into the venous system. The peel-away sheath was removed and the catheter was adhered to th e patients arm with a stat lock. The catheter was then aspirated and flushed and a sterile bandage wa s placed over the access site. A fluoroscopic spot image was saved to PACS confirming the catheter t ip within the superior vena cava. IMPRESSION: SUCCESSFUL PLACEMENT OF A 5 FR DUAL LUMEN 35 CM PICC IN THE RIGHT BASILIC VEIN. COMMENT: Patient medication list reviewed: Yes- Quality ID# 130:Eligible professional attests to doc umenting in the medical record they obtained, updated, or reviewed the patient's current medications. . Quality ID 145: Final reports for procedures using fluoroscopy that document radiation exposure mulugeta yissel, or exposure time and number of fluorographic images (if radiation exposure indices are not avail able) Quality ID #76: The patient was prepped and draped using maximum sterile barrier technique including cap, mask, sterile gown, sterile gloves, a large sterile sheet, hand hygiene, and 2% Chlorhexidine fo r cutaneous antisepsis. When ultrasound is used, sterile ultrasound techniques are followed requiring sterile gel and sterile probes. TECHNICAL DOCUMENTATION: JOB ID: [id number] [employer]- All Rights Reserved rev-11/29 Reading location - IP/workstation name: [email or web address]
--- NOTE | 2017-12-18 16:22 | RADIOLOGY REPORT (SQ) ---
EXAM DESCRIPTION: UGI SERIES COMPLETED DATE/TIME: 12/18/2017 3:24 pm REASON FOR STUDY: Rule out gastroparesis, gastric outlet obstruction COMPARISON: CT abdomen pelvis 12/12/2017 TECHNIQUE: Under fluoroscopic guidance, Gastrografin was instilled through the patient's indwelling PEG tube. Fluoroscopic spot images and routine radiographic images acquired and stored on PACS. LIMITATIONS: None. FLUOROSCOPY TIME: FLUORO TIME: 1 minutes 1 second of fluoroscopy was used. 12 images saved to PACS. FINDINGS: STOMACH: Indwelling PEG tube is within the lumen of the stomach. Instilled Gastrografin f lows freely away from the tube into the fundus. Limited images do show mass effect in the area of th e gastroesophageal junction from distal esophageal mass. GASTRIC OUTLET: There is free flow of contrast into the duodenum while the patient is in a right late ral position. Pylorus and duodenal bulb appear normal. No evidence of obstruction. DUODENUM: With the patient in a supine position there is impression upon the mid duodenum from the sp ine with a pseudo-obstruction appearance, although while the patient is rolled in a right lateral and left decubitus position contrast is free-flowing into the jejunum. PROXIMAL JEJUNUM: Visualized proximal jejunum appears normal in caliber without evidence of obstructi on. NON-GI TRACT STRUCTURES: No significant finding. OTHER: No other significant finding. IMPRESSION: NO EVIDENCE OF GASTRIC OUTLET OBSTRUCTION. CONTRAST FLOWS FREELY FROM THE STOMACH AND I NTO THE DUODENUM AND JEJUNUM WHILE THE PATIENT IS IN A LATERAL OR OBLIQUE POSITION. COMMENT: Quality ID 145: Final reports for procedures using fluoroscopy that document radiation exp osure indices, or exposure time and number of fluorographic images (if radiation exposure indices are not available) TECHNICAL DOCUMENTATION: JOB ID: [id number] [employer]- All Rights Reserved Reading location - IP/workstation name: [email or web address]
--- NOTE | 2017-12-18 16:50 | PDOC PROGRESS REPORT ---
Subjective Progress Note for:: 12/18/17 Subjective:: The patient was started on his tube feeds last night and unfortunately had significantly high residuals that did not improve. His tube feedings were stopped. General surgery ordered a small bowel follow-through this morning. Also he was unable to tolerate the oral morphine through his tube and was receiving IV Dilaudid for pain. He lost his IV access. He has had a PICC line placed this afternoon. Overall his test shows that in certain positions he has obstruction but the barium flows freely in a lateral position. I have discussed with the nursing staff trying different positions with the patient. We are going to start his tube feedings back but started 10 mL's an hour and slowly advance. I have discussed this at length with the patient and he is agreeable and understands to try different positions. Overall the patient seems more at peace today we have had a good talk. He states his pain is adequately controlled. He has had no nausea or vomiting since then tube feedings were stopped. He still is a little anxious and agitated at times. Reason For Visit: TERMINAL CA INTRACTABLE PAIN Physical Exam Vital Signs: Temp Pulse Resp BP Pulse Ox 97.7 F 83 16 135/85 H 98 12/18/17 08:00 12/18/17 11:07 12/18/17 11:07 12/18/17 08:00 12/18/17 11:07 Intake & Output 12/17/17 12/18/17 12/19/17 06:59 06:59 06:59 Intake Total 6397 1610 Output Total 1070 300 Balance 5327 1310 Weight 65 kg 62.8 kg General appearance: PRESENT: thin, other - Quite cachectic and ill-appearing Mouth exam: PRESENT: moist, tongue midline Respiratory exam: PRESENT: clear to auscultation dionte. ABSENT: rales, rhonchi, wheezes Cardiovascular exam: PRESENT: RRR. ABSENT: diastolic murmur, rubs, systolic murmur GI/Abdominal exam: PRESENT: normal bowel sounds, soft. ABSENT: distended, guarding, mass, organolmegaly, rebound, tenderness Rectal exam: PRESENT: deferred Extremities exam: PRESENT: full ROM. ABSENT: calf tenderness, clubbing, pedal edema Musculoskeletal exam: PRESENT: ambulatory Neurological exam: PRESENT: alert, awake, oriented to person, oriented to place , oriented to time, oriented to situation, CN II-XII grossly intact. ABSENT: motor sensory deficit Psychiatric exam: PRESENT: appropriate affect, normal mood. ABSENT: homicidal ideation, suicidal ideation Skin exam: PRESENT: dry, intact, warm. ABSENT: cyanosis, rash Results Laboratory Results: 12/18/17 05:36 12/18/17 05:36 12/17/17 12/18/17 12/18/17 20:01 05:36 05:36 WBC 8.3 RBC 4.56 Hgb 11.5 L Hct 35.6 L MCV 78 L MCH 25.2 L MCHC 32.3 RDW 19.1 H Plt Count 333 Seg Neutrophils % 76.2 Lymphocytes % 12.2 L Monocytes % 9.9 Eosinophils % 1.3 Basophils % 0.4 Absolute Neutrophils 6.4 Absolute Lymphocytes 1.0 Absolute Monocytes 0.8 Absolute Eosinophils 0.1 Absolute Basophils 0.0 Sodium 143.5 Potassium 3.0 L* Chloride 105 Carbon Dioxide 32 H Anion Gap 7 BUN 14 Creatinine 0.63 Est GFR ( Amer) > 60 Est GFR (Non-Af Amer) > 60 Glucose 106 Calcium 10.3 H Phosphorus 2.0 L Magnesium 1.8 12/18/17 05:36 WBC RBC Hgb Hct MCV MCH MCHC RDW Plt Count Seg Neutrophils % Lymphocytes % Monocytes % Eosinophils % Basophils % Absolute Neutrophils Absolute Lymphocytes Absolute Monocytes Absolute Eosinophils Absolute Basophils Sodium Potassium Chloride Carbon Dioxide Anion Gap BUN Creatinine Est GFR ( Amer) Est GFR (Non-Af Amer) Glucose Calcium Phosphorus 2.6 Magnesium Impressions: Chest X-Ray 12/11/17 18:24 IMPRESSION: NO ACUTE RADIOGRAPHIC FINDING IN THE CHEST. Chest/Abdomen CTA 12/11/17 20:24 IMPRESSION: 1. There is no evidence of pulmonary emboli. 2. Mild centrilobular pulmonary emphysema. 3. Large lower esophageal mass. Abdomen/Pelvis CT 12/12/17 11:42 IMPRESSION: Distal esophageal neoplasm extending into the gastric cardia. Liver metastatic lesions. Guidance Fluoroscopy 12/18/17 00:00 IMPRESSION: SUCCESSFUL PLACEMENT OF A 5 FR DUAL LUMEN 35 CM PICC IN THE RIGHT BASILIC VEIN. Interventional Vascular Procedure 12/18/17 00:00 IMPRESSION: SUCCESSFUL PLACEMENT OF A 5 FR DUAL LUMEN 35 CM PICC IN THE RIGHT BASILIC VEIN. PICC Line Insertion 12/18/17 00:00 IMPRESSION: SUCCESSFUL PLACEMENT OF A 5 FR DUAL LUMEN 35 CM PICC IN THE RIGHT BASILIC VEIN. Upper GI Series 12/18/17 00:00 IMPRESSION: NO EVIDENCE OF GASTRIC OUTLET OBSTRUCTION. CONTRAST FLOWS FREELY FROM THE STOMACH AND INTO THE DUODENUM AND JEJUNUM WHILE THE PATIENT IS IN A LATERAL OR OBLIQUE POSITION. Assessment & Plan - Diagnosis (1) Esophageal cancer, stage IV Is this a current diagnosis for this admission?: Yes Plan: Not a candidate for treatment. The plan is to go home with home hospice services as soon as he can tolerate his tube feedings. Patient seems to be coming to terms with his diagnosis. (2) Dysphagia Is this a current diagnosis for this admission?: Yes Plan: We are going to initiate tube feedings again today. The nursing staff has been instructed to try different positions with the patient. The barium did flow freely in a lateral position. I will check labs in the morning as he is at risk of refeeding syndrome. Hopefully we can get him home the next day or 2 with hospice. (3) Intractable pain Is this a current diagnosis for this admission?: Yes Plan: Stable. (4) Agitation Is this a current diagnosis for this admission?: Yes Plan: Much improved. He has as needed Haldol available as needed. (5) Hallucinations Is this a current diagnosis for this admission?: Yes Plan: The patient declines MRI. He could have brain involvement. He does not seem to tolerate Ativan. Would recommend Haldol if he gets agitated. (6) Severe protein-calorie malnutrition Is this a current diagnosis for this admission?: Yes Plan: He will be started on tube feedings again and we will see if he can tolerate them. (7) Tobacco dependence Is this a current diagnosis for this admission?: Yes Plan: He has lobby privileges to go outside and smoke. This is not ideal but I believe he would check himself out of the hospital AMA if we did not allow him to do this. He is declined a nicotine patch and states that it sevilla his skin. (8) Do not resuscitate Is this a current diagnosis for this admission?: Yes - Time Time Spent with patient: 25-34 minutes - Inpatient Certification Medical Necessity: Other - Inpatient hospitalization remains necessary. We are going to place the patient back on tube feedings and see if we can successfully advance them over the next couple of days. Once he is tolerating his tube feedings we will send him home with hospice services. I have discussed this at length with the patient and he is in agreement with this plan
[2017-12-18] MEDS: ONDANSETRON HCL INJ/PF 4 MG/2 ML SDV IV PRN (17:02)
[2017-12-18] MEDS ORDERED: MORPHINE SULFATE 10 MG/5 ML ORAL SOLUTION UDCUP PO PRN (18:00)
[2017-12-18] MEDS ORDERED: POTASSIUM CHLORIDE 20 MEQ/50 ML RTU IV ONE ×2 (18:45→19:45)
[2017-12-18] MEDS: NORMAL SALINE 10 ML SDV (SCHEDULED) IV SCH (21:28)
[2017-12-19] MEDS: ONDANSETRON HCL INJ/PF 4 MG/2 ML SDV IV PRN ×4 (00:54→21:08)
[2017-12-19] MEDS: HYDROMORPHONE HCL INJ/PF 2 MG/ML AMPULE IV PRN ×6 (03:29→17:18)
[2017-12-19] MEDS: NORMAL SALINE 10 ML SDV (SCHEDULED) IV SCH ×2 (10:02→21:20)
--- NOTE | 2017-12-19 11:51 | PDOC PROGRESS REPORT ---
Subjective Progress Note for:: 12/19/17 Subjective:: The patient is resting in his bed. He basically tolerated his tube feedings fairly well last night. He did not have high residuals when he would lie on his side. There seems to be some confusion regarding his tube feedings. We are trying to get him up to a goal rate with continuous drip today. However the patient states that he is going home on bolus feedings. I have asked the nursing staff to get the dietitian to come back. I had like to make sure he could tolerate bolus feedings prior to going home and he can transition to a continuous drip later on down the road. He is quite ambulatory at this time. Also since he seems to have to lay on his side for his stomach to empty bolus feedings might be more appropriate. I discussed this with him and his and they are in agreement with this. I am tentatively planning his discharge for tomorrow. Reason For Visit: TERMINAL CA INTRACTABLE PAIN Physical Exam Vital Signs: Temp Pulse Resp BP Pulse Ox 97.6 F 51 L 18 141/91 H 100 12/19/17 08:09 12/19/17 11:21 12/19/17 11:21 12/19/17 08:09 12/19/17 11:21 Intake & Output 12/18/17 12/19/17 12/20/17 06:59 06:59 06:59 Intake Total 1610 577 Output Total 300 Balance 1310 577 Weight 62.8 kg 62.9 kg General appearance: PRESENT: thin, other - Quite ill-appearing and cachectic. Head exam: PRESENT: atraumatic, normocephalic Mouth exam: PRESENT: moist, tongue midline Respiratory exam: PRESENT: clear to auscultation dionte. ABSENT: rales, rhonchi, wheezes Cardiovascular exam: PRESENT: RRR. ABSENT: diastolic murmur, rubs, systolic murmur GI/Abdominal exam: PRESENT: normal bowel sounds, soft. ABSENT: distended, guarding, mass, organolmegaly, rebound, tenderness Extremities exam: PRESENT: full ROM. ABSENT: calf tenderness, clubbing, pedal edema Musculoskeletal exam: PRESENT: ambulatory Neurological exam: PRESENT: alert, awake, oriented to person, oriented to place , oriented to time, oriented to situation, CN II-XII grossly intact. ABSENT: motor sensory deficit Psychiatric exam: PRESENT: appropriate affect, normal mood. ABSENT: homicidal ideation, suicidal ideation Skin exam: PRESENT: dry, intact, warm. ABSENT: cyanosis, rash Results Laboratory Results: 12/18/17 05:36 12/18/17 05:36 Impressions: Chest X-Ray 12/11/17 18:24 IMPRESSION: NO ACUTE RADIOGRAPHIC FINDING IN THE CHEST. Chest/Abdomen CTA 12/11/17 20:24 IMPRESSION: 1. There is no evidence of pulmonary emboli. 2. Mild centrilobular pulmonary emphysema. 3. Large lower esophageal mass. Abdomen/Pelvis CT 12/12/17 11:42 IMPRESSION: Distal esophageal neoplasm extending into the gastric cardia. Liver metastatic lesions. Guidance Fluoroscopy 12/18/17 00:00 IMPRESSION: SUCCESSFUL PLACEMENT OF A 5 FR DUAL LUMEN 35 CM PICC IN THE RIGHT BASILIC VEIN. Interventional Vascular Procedure 12/18/17 00:00 IMPRESSION: SUCCESSFUL PLACEMENT OF A 5 FR DUAL LUMEN 35 CM PICC IN THE RIGHT BASILIC VEIN. PICC Line Insertion 12/18/17 00:00 IMPRESSION: SUCCESSFUL PLACEMENT OF A 5 FR DUAL LUMEN 35 CM PICC IN THE RIGHT BASILIC VEIN. Upper GI Series 12/18/17 00:00 IMPRESSION: NO EVIDENCE OF GASTRIC OUTLET OBSTRUCTION. CONTRAST FLOWS FREELY FROM THE STOMACH AND INTO THE DUODENUM AND JEJUNUM WHILE THE PATIENT IS IN A LATERAL OR OBLIQUE POSITION. Assessment & Plan - Diagnosis (1) Esophageal cancer, stage IV Is this a current diagnosis for this admission?: Yes Plan: He will be going home with home hospice services as soon as he is tolerating his tube feedings. (2) Dysphagia Is this a current diagnosis for this admission?: Yes Plan: Plan as above in regards to tube feedings (3) Intractable pain Is this a current diagnosis for this admission?: Yes Plan: Stable on current regimen (4) Agitation Is this a current diagnosis for this admission?: Yes Plan: Much improved (5) Hallucinations Is this a current diagnosis for this admission?: Yes Plan: Stable (6) Severe protein-calorie malnutrition Is this a current diagnosis for this admission?: Yes Plan: We are trying to get him to where he can tolerate his tube feedings prior to discharge (7) Tobacco dependence Is this a current diagnosis for this admission?: Yes Plan: Stable (8) Do not resuscitate Is this a current diagnosis for this admission?: Yes - Time Time Spent with patient: 25-34 minutes - Inpatient Certification Medical Necessity: Other - Inpatient hospitalization remains necessary. As soon as the patient is tolerating his tube feedings he will be discharged home with home hospice services. Hopefully this will be tomorrow
[2017-12-19] MEDS ORDERED: HYDROMORPHONE HCL INJ/PF 2 MG/ML AMPULE IV PRN (20:33)
[2017-12-19] MEDS: FENTANYL CITRATE INJ/PF 100 MCG/2 ML AMPUL IV PRN (21:08)
[2017-12-19 23:08] VITALS: BP 141/64
[2017-12-19] MEDS ORDERED: PROMETHAZINE HCL INJ 25 MG/1 ML VIAL IV PRN (23:12)
[2017-12-20] MEDS: FENTANYL CITRATE INJ/PF 100 MCG/2 ML AMPUL IV PRN ×2 (06:27→12:32)
[2017-12-20] MEDS: FENTANYL 50 MCG/HR PATCH.TD72 TD SCH (09:29)
[2017-12-20] MEDS: NORMAL SALINE 10 ML SDV (SCHEDULED) IV SCH (09:31)
--- NOTE | 2017-12-20 12:03 | PDOC DISCHARGE SUMMARY ---
General - Admit/Disc Date/PCP Admission Date/Primary Care Provider: 12/12/17 00:00 Oncologist: Dr. Nesbitt Discharge Date: 12/20/17 - Discharge Diagnosis (1) Esophageal cancer, stage IV Is this a current diagnosis for this admission?: Yes Summary: Not a candidate for further treatment. The patient is opted to go home with home health services. He has a totally obstructing mass. He did have a PEG tube placed. We have tried to advance tube feedings but are having some difficulties as he has a gastric outlet obstruction when he lays in certain positions. The patient's and hospice is going to work with him on this as an outpatient. (2) Dysphagia Is this a current diagnosis for this admission?: Yes Summary: Plan as above. Due to obstructing esophageal mass. (3) Intractable pain Is this a current diagnosis for this admission?: Yes Summary: He is being sent home on a fentanyl patch and Roxanol. (4) Agitation Is this a current diagnosis for this admission?: Yes Summary: He has hallucinations with Ativan. I am sending him home with Haldol. (5) Hallucinations Is this a current diagnosis for this admission?: Yes Summary: As above. The patient declined MRI to see whether he has brain metastases. (6) Severe protein-calorie malnutrition Is this a current diagnosis for this admission?: Yes Summary: Hospice and his will work on his tube feedings at home. (7) Tobacco dependence Is this a current diagnosis for this admission?: Yes (8) Do not resuscitate Is this a current diagnosis for this admission?: Yes - Additional Information Resuscitation Status: Full Code Discharge Diet: Other (Comments) - Tube feeding as tolerated Prescriptions: Fentanyl [Duragesic 50 Mcg/Hr Transdermal Patch] 1 each TD Q3DAYS #1 [id number] Haloperidol Lactate [Haldol Oral Soln 10 mg/5 ml Udcup] 1 mg NG Q4HP PRN #300 ml PRN Reason: Morphine Sulfate [Roxanol] 5 mg PO Q2H PRN #30 ml PRN Reason: Ondansetron HCl [Zofran 4 mg/5 ml Oral Soln] 10 ml PO Q4H PRN #1200 ml PRN Reason: Home Medications: Fentanyl [Duragesic 50 Mcg/Hr Transdermal Patch] 1 each TD Q3DAYS #1 patch.[id number] 06/08/18 Haloperidol Lactate [Haldol Oral Soln 10 mg/5 ml Udcup] 1 mg NG Q4HP PRN #300 ml 12/20/17 Morphine Sulfate [Roxanol] 5 mg PO Q2H PRN #30 ml 12/20/17 Ondansetron HCl [Zofran 4 mg/5 ml Oral Soln] 10 ml PO Q4H PRN #1200 ml 12/20/17 History of Present Illness History of Present Illness: CHEN GOEL is a 57 year old male who presented to the emergency room with nausea and vomiting and difficulty swallowing. Hospital Course Hospital Course: The patient is a 57-year-old male who was diagnosed with esophageal cancer in August 2016. At that time he was told that in order to undergo any aggressive therapy would need to have a PEG tube placed and would need to improve his performance status. Chemotherapy and radiation was recommended but he was not felt to be a surgical candidate initially. The patient declined all treatment and has not followed up with an oncologist. He presented to the emergency room this week with chest pain dyspnea and difficulty eating. He also was having issues with nausea and vomiting. He underwent workup here in the hospital and was found to have a total obstructing mass of the esophagus. Long discussions were had with the patient. He was followed by the GI service as well as oncology. Ultimately the patient is opted to have a PEG tube placed and to go home with home hospice services. Patient did undergo PEG tube placement. Attempts have been made to advance his tube feedings. It appears that due to his severe cachexia when he lays flat his spine pushes and causes a gastric outlet obstruction. When he lays in certain positions his stomach will empty normally. We were trying to work with him here in the hospital to get his tube feedings advanced but have been unsuccessful. Ultimately the patient is quite frustrated. The patient's has lots of experience with PEG tubes in the past and hospice and her going to work with him to advance his tube feedings in the outpatient settings. At this point he will be discharged home with home hospice services today. He is in stable condition on the day of discharge. Physical Exam Vital Signs: Temp Pulse Resp BP Pulse Ox 97.9 F 52 L 14 141/64 H 96 12/19/17 19:38 12/19/17 19:38 12/19/17 19:38 12/19/17 19:38 12/19/17 19:38 Intake & Output 12/19/17 12/20/17 12/21/17 06:59 06:59 06:59 Intake Total 577 475 Balance 577 475 Weight 62.9 kg 62.9 kg General appearance: PRESENT: thin - He is quite cachectic. He is also agitated at the time of my visit and wants to go home, other Head exam: PRESENT: other - He has bitemporal muscle wasting Mouth exam: PRESENT: moist, tongue midline Neck exam: ABSENT: carotid bruit, JVD, lymphadenopathy, thyromegaly Respiratory exam: PRESENT: clear to auscultation dionte. ABSENT: rales, rhonchi, wheezes Cardiovascular exam: PRESENT: RRR. ABSENT: diastolic murmur, rubs, systolic murmur GI/Abdominal exam: PRESENT: normal bowel sounds, soft, other - PEG tube in place.. ABSENT: distended, guarding, mass, organolmegaly, rebound, tenderness Rectal exam: PRESENT: deferred Extremities exam: PRESENT: full ROM. ABSENT: calf tenderness, clubbing, pedal edema Musculoskeletal exam: PRESENT: ambulatory Neurological exam: PRESENT: alert, awake, oriented to person, oriented to place , oriented to time, oriented to situation, CN II-XII grossly intact. ABSENT: motor sensory deficit Psychiatric exam: PRESENT: agitated, anxious Skin exam: PRESENT: dry, intact, warm. ABSENT: cyanosis, rash Results Laboratory Results: 12/18/17 05:36 12/18/17 05:36 Impressions: Chest X-Ray 12/11/17 18:24 IMPRESSION: NO ACUTE RADIOGRAPHIC FINDING IN THE CHEST. Chest/Abdomen CTA 12/11/17 20:24 IMPRESSION: 1. There is no evidence of pulmonary emboli. 2. Mild centrilobular pulmonary emphysema. 3. Large lower esophageal mass. Abdomen/Pelvis CT 12/12/17 11:42 IMPRESSION: Distal esophageal neoplasm extending into the gastric cardia. Liver metastatic lesions. Guidance Fluoroscopy 12/18/17 00:00 IMPRESSION: SUCCESSFUL PLACEMENT OF A 5 FR DUAL LUMEN 35 CM PICC IN THE RIGHT BASILIC VEIN. Interventional Vascular Procedure 12/18/17 00:00 IMPRESSION: SUCCESSFUL PLACEMENT OF A 5 FR DUAL LUMEN 35 CM PICC IN THE RIGHT BASILIC VEIN. PICC Line Insertion 12/18/17 00:00 IMPRESSION: SUCCESSFUL PLACEMENT OF A 5 FR DUAL LUMEN 35 CM PICC IN THE RIGHT BASILIC VEIN. Upper GI Series 12/18/17 00:00 IMPRESSION: NO EVIDENCE OF GASTRIC OUTLET OBSTRUCTION. CONTRAST FLOWS FREELY FROM THE STOMACH AND INTO THE DUODENUM AND JEJUNUM WHILE THE PATIENT IS IN A LATERAL OR OBLIQUE POSITION. Qualifiers - * PATIENT BEING DISCHARGED WITH ANY OF THE FOLLOWING DIAGNOSIS: No Plan Discharge Plan: He will be discharged home today with home hospice services. Time Spent: Greater than 30 Minutes
== END 2017-12-20 13:30 | disposition hospice, home (50) | DRG 374 ==
LOC: ER 18:13 → EH 12-12 → 4S 12-12 02:25
PROVIDERS: ADMIT Internal Medicine; ATTEND Internal Medicine
PROC: 3E0F73Z Introduction of Anti-inflammatory into Respiratory Tract, Via Natural or Artificial Opening (ICD-10-PCS; 2017-12-12)
PROC: 0DB58ZX Excision of Esophagus, Via Natural or Artificial Opening Endoscopic, Diagnostic (ICD-10-PCS; principal; 2017-12-13 10:30)
PROC: 0DH63UZ Insertion of Feeding Device into Stomach, Percutaneous Approach (ICD-10-PCS; 2017-12-16)
PROC: 3E0G76Z Introduction of Nutritional Substance into Upper GI, Via Natural or Artificial Opening (ICD-10-PCS; 2017-12-17)
PROC: 02HV33Z Insertion of Infusion Device into Superior Vena Cava, Percutaneous Approach (ICD-10-PCS; 2017-12-18)
PROC: B518ZZA Fluoroscopy of Superior Vena Cava, Guidance (ICD-10-PCS; 2017-12-18)
PROC: B548ZZA Ultrasonography of Superior Vena Cava, Guidance (ICD-10-PCS; 2017-12-18)
DX: C15.5 Malignant neoplasm of lower third of esophagus (principal); E43 Unspecified severe protein-calorie malnutrition; R44.3 Hallucinations, unspecified; C78.7 Secondary malignant neoplasm of liver and intrahepatic bile duct; Z51.5 Encounter for palliative care; Z66 Do not resuscitate; R45.1 Restlessness and agitation; F17.210 Nicotine dependence, cigarettes, uncomplicated; J43.2 Centrilobular emphysema; G89.29 Other chronic pain; R47.02 Dysphasia; E88.09 Other disorders of plasma-protein metabolism, not elsewhere classified; Z68.20 Body mass index [BMI] 20.0-20.9, adult; Z83.6 Family history of other diseases of the respiratory system
CPT/HCPCS: 36415; 36569; 43239; 71045; 71275; 731; 74177; 74247; 76937; 77001; 790; 80048; 80053; 81001; 82550; 82553; 83690; 83735; 83880; 84100; 84484; 85025; 85610; 85730; 88305; 88312; 93005; 93010; 96361; 96374; 96375; 96376; 99285; C1729; C1769; C9290; J0330; J0690; J1170; J1642; J2060; J2250; J2270; J2405; J2550; J2704; J3010; J3480; J3490; J7030; J7620; S0119